=== PATIENT | female | born 1960 | race Caucasian/White ===

== ENCOUNTER → 2017-09-24 13:11 | Outpatient (CLI) | payer OTHER, SELFPAY ==
--- NOTE | 2017-09-24 13:17 | CT_ITS ---
CT bony pelvis CLINICAL INDICATION: ITS.REASON: RT HIP PAIN,SACROILIITIS,LOW BACK PAIN ORDERING PHYSICIAN: Jayson Lea PATIENT AGE: 56 years TECHNIQUE: Axial images obtained without contrast. Sagittal, coronal, and 3-D reformatted images are generated and reviewed. COMPARISON: No fracture or dislocation. No lytic or blastic change. The SI joints have an unremarkable appearance. No evidence of effusion, erosion, or significant spurring or sclerosis. There has been prior posterior laminectomy with posterior fusion at L5-S1. There are minimal osteoarthritic changes of the hips with decrease in the joint space superiorly and minimal subcortical cystic change on the right involving the lateral acetabulum and the lateral aspect of the femoral head. No lytic or blastic change. No bony destructive process evident No pelvic mass or abnormal fluid collection. There has been prior hysterectomy. IMPRESSION: 1. Prior fusion with interpedicular screws at L5-S1. 2. Unremarkable SI joints. 3. Minimal osteoarthritic change of the right hip.
[2017-09-24 13:41] LABS: Microscopic, Urine URINE MICROSCOPIC (MICROSCOPIC)
[2017-09-24 14:12] LABS: Basophils % 0.3 % (0.1-2.0); Eosinophils # 0.1 K/mm3 (0.0-0.4); Eosinophils % 1.5 % (0.1-12.0); Hematocrit 40.9 % (37.0-47.0); Hemoglobin 13.9 g/dL (12.2-16.2); Lymphocytes # 2.2 K/mm3 (0.7-4.5); Lymphocytes % 22.8 K/mm3 (10-50); Mean Corpuscular HGB Conc 34.1 g/dL (31.8-35.4); Mean Corpuscular Hemoglobin 31.6 pg (27.0-31.2); Mean Corpuscular Volume 92.9 fl (81-99); Mean Platelet Volume 7.3 fl (7.4-10.4); Monocytes # 0.4 K/mm3 (0.1-1.0); Monocytes % 3.6 % (1.7-9.3); Neutrophils # 6.9 K/mm3 (1.8-7.8); Neutrophils % 71.7 % (37.0-80.0); Platelet Count 335 K/mm3 (142-424); Red Cell Distribution Width 12.5 % (11.5-17.5); White Blood Count 9.6 K/mm3 (4.8-10.8)
[2017-09-24 14:19] LABS: Appearance,Urine CLEAR (Clear); Bilirubin,Urine Negative (Negative); Blood, Urine Negative (Negative); Color,Urine YELLOW (Yellow); Glucose,Urine (UA) Negative (Negative); Ketones,Urine Negative (Negative); Leukocyte Esterase,Urine Negative (Negative); Nitrate,Urine Negative (Negative); PH,Urine 6.5 (5.0-8.5); Protein,Urine Negative (Negative); Urobilinogen,Urine 0.2 EU/dl (0.2)
[2017-09-24 14:20] LABS: Activated Partial Thrombo Time 29.7 seconds (23.6-34.0); INR 0.99 (0.9-1.1); Prothrombin Time 10.7 seconds (9.4-11.8)
[2017-09-24 14:52] LABS: Bacteria,Urine Trace /lpf; Squamous Epithelial Cell,Urine Occasional #/hpf (0-5)
[2017-09-24 15:23] LABS: Blood Urea Nitrogen 6 mg/dL (7-18); Carbon Dioxide 25 mmol/L (21.0-32.0); Chloride 98 mmol/L (98-107); Estimated Glomerular Filt Rate 87 ml/min (>60); GFR (African American) 105 ML/MIN (>60); Glucose 117 mg/dL (74-106); Sodium 135 mmol/L (136-145)
== END ==
PROVIDERS: PCP Emergency Medicine; Visit Provider Orthopaedic Surgery
DX: Z01.818 Encounter for other preprocedural examination (principal); M25.551 Pain in right hip; M46.1 Sacroiliitis, not elsewhere classified; M54.5 Low back pain
CPT/HCPCS: 36415; 72192; 80048; 81001; 85025; 85610; 85730; 93005

== ENCOUNTER → 2017-11-07 12:04 | Outpatient (CLI) | payer OTHER, SELFPAY ==
[2017-11-07 12:42] LABS: Basophils % 0.4 % (0.1-2.0); Eosinophils # 0.1 K/mm3 (0.0-0.4); Hematocrit 43.5 % (37.0-47.0); Hemoglobin 14.3 g/dL (12.2-16.2); Lymphocytes # 2.4 K/mm3 (0.7-4.5); Lymphocytes % 21.5 K/mm3 (10-50); Mean Corpuscular Hemoglobin 31.2 pg (27.0-31.2); Mean Corpuscular Volume 94.6 fl (81-99); Mean Platelet Volume 7.7 fl (7.4-10.4); Monocytes # 0.6 K/mm3 (0.1-1.0); Monocytes % 5.3 % (1.7-9.3); Neutrophils % 71.7 % (37.0-80.0); Platelet Count 330 K/mm3 (142-424); Red Blood Count 4.59 M/mm3 (4.20-5.40); Red Cell Distribution Width 12.6 % (11.5-17.5); White Blood Count 11.2 K/mm3 (4.8-10.8)
[2017-11-07 13:21] LABS: Blood Urea Nitrogen 7 mg/dL (7-18); Carbon Dioxide 30 mmol/L (21.0-32.0); Chloride 102 mmol/L (98-107); Creatinine,Serum 0.65 mg/dL (0.55-1.02); Estimated Glomerular Filt Rate 95 ml/min (>60); GFR (African American) 115 ML/MIN (>60); Glucose 93 mg/dL (74-106); Sodium 138 mmol/L (136-145)
== END ==
PROVIDERS: Visit Provider Orthopaedic Surgery
DX: G56.01 Carpal tunnel syndrome, right upper limb (principal)
CPT/HCPCS: 36415; 80048; 85025

== ENCOUNTER → 2017-11-12 07:19 | Day surgery (SDC) | payer OTHER, SELFPAY ==
--- NOTE | 2017-11-12 07:40 | HMH.ANESCL ---
[facility] Anesthesia Checklist - Patient Identification Patient Identification: Arm Band, Verbal (Name & ) - Structural Data Admitted From: Home Planned Operative Procedure/s: R ctr Consent for Planned Operative Procedure(s) Verified: Yes Verified Documents: Surgical Consent - NPO Status Verified Time NPO: 00:00 - Chart Verification Results Verified: CBC, BMP - Additional verifications Anesthesia Reactions: No Hx Blood Transfusions: No Blood Transfusion Reaction: No - Cardiovascular Assessment Heart Sounds: S1 & S2 Pulse Strength: Baseline Pulse Rhythm: Regular Peripheral Edema: No - Airway Assessment C-Spine Mobility Assessed: Yes TMJ Mobility Assessed: Yes Dentition: Good Dentition - Neurological Assessment Level of Consciousness: Awake, Alert, Appropriate Hx Seizures: No Numbness or tingling in extremities: No - Anesthesia Plan Anesthesia Risk discussed: Yes Anesthesia Plan: Verified ASA Class: III Anesthesia Type: MAC [facility] Anesthesia HX I have reviewed the patient's past medical history: Yes Medical History: Reports:: Gastroesophageal Reflux Disease(GERD), Hyperlipidemia, Hypertension Denies:: Cancer, Diabetes Mellitus Type 1, Diabetes Mellitus Type 2, Internal Pacemaker, MRSA Other Medical History: Reports: Arthritis, Thyroid Disease Other Surgeries: Yes: , Hysterectomy-Partial, Sinus Surgery, Thyroidectomy, Tubal Ligation. No: Pacemaker Amputation: No Fractures: No *Family Hx:: Cancer, Coronary Artery Disease, Hyperlipidemia, Hypertension
[2017-11-12 07:45] VITALS: BP 98/64; PULSE 76; RESP 18; TEMP 36.7; O2SAT 97
[2017-11-12 07:59] VITALS: BMI 25.7
[2017-11-12 09:35] VITALS: BP 92/60; PULSE 69; RESP 20; TEMP 36.5; O2SAT 98
[2017-11-12 09:50] VITALS: BP 89/58; PULSE 68; RESP 20; O2SAT 94
[2017-11-12 10:05] VITALS: BP 86/55; PULSE 72; RESP 20; O2SAT 95
[2017-11-12 10:16] VITALS: BP 92/60; PULSE 70; RESP 20; O2SAT 96
--- NOTE | 2017-11-12 10:32 | HMH.OPNOTE ---
Date of procedure: 11/12/17 Pre-op Diagnosis:: Carpal syndrome, right wrist Post-op diagnosis:: same Procedure performed:: Open carpal tunnel release, right wrist Surgeon:: Og Becker MD Bread Distributor(s):: Charisse lundberg SPRAY STAINER:: Javad Randle Anesthesia: regional Estimated blood loss (mL): 2 Clinical Note:: Patient is a 56-year-old female with right carpal tunnel syndrome with long-standing symptoms. EMG/NCV results confirmed carpal tunnel syndrome on the right side. Patient failed to respond adequately to conservative management. Therefore the carpal tunnel release surgery was necessary to relieve symptoms, preserve the remaining fibers of the median nerve, improve function and decrease the pain, paresthesias and weakness and to prevent permanent nerve damage. Operative findings:: The intraoperative findings showed the median nerve to be tightly compressed and hyperemic. The flexor retinaculum was noted to be thick and tight. There was mild synovitis in the carpal tunnel. There was no evidence of any space-occupying lesions within the carpal tunnel. Operative note:: On the day of the surgery the patient was met in the preoperative area. Patient was positively identified and the operative site was marked and initialed by me. A physical examination was performed and the chart was updated. I again discussed the procedure, risks and benefits and alternatives with the patient. The complications discussed include but are not limited to- bleeding, injury to nerves, blood vessels and tendons, infection, wound dehiscence wound coming apart, incomplete relief/continued pain, persistent numbness, palmar hypersensitivity, pillar pain, DVT/PE, complex regional pain syndrome(CRPS), worsening of nerve damage, failure of the condition to improve, incomplete return of function, bowstringing of tendons, weakness of deburr technician strength, recurrence, failure of the surgery to accomplish the desired goals, decreased use of the hand, loss of use of the arm, loss of the hand or arm, loss of life. Likely need for further surgery in the future has been discussed. I've indicated to the patient where the proposed incision would be made and also discussed the possibility of extending the incision if needed to accomplish an effective release. We have discussed how the goal of surgery is to protect the fibers which have remained healthy and hopefully reverse the symptoms of the fibers which are compromised but still recoverable. We have explained that, fibers that are permanently damaged will not recover. We have also discussed the anesthetic options which include local, regional and general. Patient expressed a preference for a regional [place]'s block. Patient asked appropriate questions and all have been answered by me. Patient wished to proceed with the surgery. Consent form was reviewed and signed. The patient was brought to the operating room and placed supine on the operating table. The right upper extremity was placed over a side table. All the bony prominences were well-padded. The patient had a Monowi's block anesthesia and IV sedation administered by the property claim rep. Please see nursing records for the total tourniquet time. The right upper extremity was prepped and draped in the usual sterile fashion. A preprocedure timeout was performed as per hospital policy. The skin incision was marked using the Jo's landmarks, just ulnar to the thenar crease. Jo's landmarks were utilized and a skin incision was made parallel and just ulnar to the thenar crease with a 15 blade. Blunt tissue dissection was carried through the subcutaneous tissue down to the palmar fascia. The palmar fascia was incised with the knife to reveal the transverse carpal ligament. The transverse carpal ligament was adequately exposed and then incised with the knife just enough to expose the median nerve. We then protected the median nerve with a freer elevator and extended the incision on the ulnar aspect of the nerve usi
--- NOTE | 2017-11-12 10:37 | P.OP_ITS ---
Date of procedure: 11/12/17 Pre-op Diagnosis:: Carpal syndrome, right wrist Post-op diagnosis:: same Procedure performed:: Open carpal tunnel release, right wrist Surgeon:: Og Becker MD Shock Absorber Installer(s):: Charisse lundberg STEAK TENDERIZER MACHINE:: Javad Randle Anesthesia: regional Estimated blood loss (mL): 2 Clinical Note:: Patient is a 56-year-old female with right carpal tunnel syndrome with long- standing symptoms. EMG/NCV results confirmed carpal tunnel syndrome on the right side. Patient failed to respond adequately to conservative management. Therefore the carpal tunnel release surgery was necessary to relieve symptoms, preserve the remaining fibers of the median nerve, improve function and decrease the pain, paresthesias and weakness and to prevent permanent nerve damage. Operative findings:: The intraoperative findings showed the median nerve to be tightly compressed and hyperemic. The flexor retinaculum was noted to be thick and tight. There was mild synovitis in the carpal tunnel. There was no evidence of any space- occupying lesions within the carpal tunnel. Operative note:: On the day of the surgery the patient was met in the preoperative area. Patient was positively identified and the operative site was marked and initialed by me. A physical examination was performed and the chart was updated. I again discussed the procedure, risks and benefits and alternatives with the patient. The complications discussed include but are not limited to- bleeding, injury to nerves, blood vessels and tendons, infection, wound dehiscence wound coming apart, incomplete relief/continued pain, persistent numbness, palmar hypersensitivity, pillar pain, DVT/PE, complex regional pain syndrome(CRPS), worsening of nerve damage, failure of the condition to improve, incomplete return of function, bowstringing of tendons, weakness of veterinary assistant strength, recurrence, failure of the surgery to accomplish the desired goals, decreased use of the hand, loss of use of the arm, loss of the hand or arm, loss of life. Likely need for further surgery in the future has been discussed. I've indicated to the patient where the proposed incision would be made and also discussed the possibility of extending the incision if needed to accomplish an effective release. We have discussed how the goal of surgery is to protect the fibers which have remained healthy and hopefully reverse the symptoms of the fibers which are compromised but still recoverable. We have explained that, fibers that are permanently damaged will not recover. We have also discussed the anesthetic options which include local, regional and general. Patient expressed a preference for a regional Natural Steps's block. Patient asked appropriate questions and all have been answered by me. Patient wished to proceed with the surgery. Consent form was reviewed and signed. The patient was brought to the operating room and placed supine on the operating table. The right upper extremity was placed over a side table. All the bony prominences were well-padded. The patient had a Natural Steps's block anesthesia and IV sedation administered by the marketing specialist. Please see nursing records for the total tourniquet time. The right upper extremity was prepped and draped in the usual sterile fashion. A preprocedure timeout was performed as per hospital policy. The skin incision was marked using the Jo's landmarks, just ulnar to the thenar crease. Jo's landmarks were utilized and a skin incision was made parallel and just ulnar to the thenar crease with a 15 blade. Blunt tissue dissection was carried through the subcutaneous tissue down to the palmar fascia. The palmar fascia was incised with the knife to reveal the transverse carpal ligament. The transverse
== END ==
PROVIDERS: PCP Emergency Medicine; Visit Provider Orthopaedic Surgery
PROC: (CPT 64721; principal; 2017-11-12 09:00)
DX: G56.01 Carpal tunnel syndrome, right upper limb (principal)
CPT/HCPCS: 64721; 96374

== ENCOUNTER → 2018-01-22 13:44 | Outpatient (CLI) | payer OTHER, SELFPAY ==
--- NOTE | 2018-01-22 13:45 | CI_ITS ---
Cerebrovascular Exam Indications: Follow-up carotid 433.10. IMPRESSIONS Study suggests 50-69% stenosis involving the right internal carotid artery and the left internal carotid artery. No change from the study of 22-May-2017. History: A bruit of the left carotid artery. A bruit of the right carotid artery. Carotid duplex study. Complete study and Doppler flow study including spectral analysis, color and gonzalez scale imaging. Location: Vascular laboratory. Patient status: Outpatient. Tables: Arterial flow: + +---------+--------+ Location V sys V ed + +---------+--------+ Right CCA - proximal 137.8cm/s 42.9cm/s + +---------+--------+ Right CCA - distal 83.1cm/s 35.6cm/s + +---------+--------+ Right ECA 123.2cm/s -------- + +---------+--------+ Right ICA - proximal 86.7cm/s 41.1cm/s + +---------+--------+ Right ICA - mid 115.9cm/s 57.5cm/s + +---------+--------+ Right ICA - distal 134cm/s 55.7cm/s + +---------+--------+ Right vertebral 41.1cm/s -------- + +---------+--------+ Left CCA - proximal 148.8cm/s 52cm/s + +---------+--------+ Left CCA - distal 146.9cm/s 55.7cm/s + +---------+--------+ Left ECA 110.7cm/s -------- + +---------+--------+ Left ICA - proximal 172.5cm/s 55.7cm/s + +---------+--------+ Left ICA - mid 186.2cm/s 66.9cm/s + +---------+--------+ Left ICA - distal 139.9cm/s 45cm/s + +---------+--------+ Left vertebral 66.9cm/s -------- + +---------+--------+ Velocity ratios: + + + + + + Right, V sys Right, V ed Left, V sys Left, V ed + + + + + + Max ICA/dist CCA 1.61 1.62 1.27 1.2 + + + + + + (Report amended ) Electronically signed by: Khadar Mcnamara [id number]
== END ==
PROVIDERS: PCP Emergency Medicine; Visit Provider Internal Medicine
DX: R42 Dizziness and giddiness (principal)
CPT/HCPCS: 93880

== ENCOUNTER → 2018-07-18 12:51 | Outpatient (CLI) | payer OTHER, SELFPAY ==
--- NOTE | 2018-07-18 12:54 | MR_ITS ---
MR pelvis wo con HISTORY: Intermittent buttock and right leg pain with numbness and tingling. Painful to walk ITS.REASON: POST SI FUSION ORDERING PHYSICIAN: Jayson Lea PATIENT AGE: 57 years Comparison: 10/04/2017 TECHNIQUE: Standard multiplanar multiecho sequences are performed without contrast. FINDINGS: Patient has had prior posterior fusion in the lumbosacral spine and also has had prior fusion of the right SI joint. There is extensive artifact from the metallic hardware that has been inserted. This obscures fine detail of the right sacroiliac region and the lumbosacral junction. No abnormal fluid collections are evident. No bony destructive process.. No pelvic mass or abscess. Sacral region has an unremarkable appearance. The hips are unremarkable. There has been prior hysterectomy IMPRESSION: 1. Artifact from lumbosacral fusion and right sacroiliac fusion. 2. Otherwise negative, no acute finding
== END ==
PROVIDERS: PCP Emergency Medicine; Visit Provider Orthopaedic Surgery
DX: M46.1 Sacroiliitis, not elsewhere classified (principal)
CPT/HCPCS: 72195

== ENCOUNTER → 2018-09-26 13:18 | Outpatient (CLI) | payer OTHER, SELFPAY | PROVIDERS: PCP Emergency Medicine; Visit Provider Internal Medicine Cardiovascular Disease | DX: I25.10 Atherosclerotic heart disease of native coronary artery without angina pectoris (principal); R00.0 Tachycardia, unspecified; I65.23 Occlusion and stenosis of bilateral carotid arteries; E78.49 Other hyperlipidemia; I51.9 Heart disease, unspecified; F17.200 Nicotine dependence, unspecified, uncomplicated; Z82.49 Family history of ischemic heart disease and other diseases of the circulatory system | CPT/HCPCS: 93270 ==

== ENCOUNTER → 2018-10-03 09:47 | Outpatient (CLI) | payer OTHER, SELFPAY ==
--- NOTE | 2018-10-03 09:48 | MM_ITS ---
MM Dig screening mamm BI w/CAD CAD Screening COMPARISON: Digital mammograms with CAD 07/19/2016 and 07/23/2014 INDICATION: There is no personal or family history of breast cancer, there has been a previous biopsy left breast for benign disease. TECHNIQUE: Standard CC and MLO images were obtained. R2 CAD reviewed. FINDINGS: Moderate diffuse fibroglandular densities are seen throughout both breasts. There is no suspicious lesion in either breast and no suspicious microcalcifications. IMPRESSION: Stable exam with fibrofatty parenchyma BI-RADS Category: 1 Negative RECOMMENDED FOLLOW-UP: 1YR - 1 YEAR FOLLOW-UP (A letter has been sent to the patient regarding results of the study.)
--- NOTE | 2018-10-03 09:48 | XR_ITS ---
DEXA SCAN.-BONE DENSITY STUDY HIPS AND LUMBAR SPINE HISTORY: Postmenopausal female smoker. Low calcium intake. TECHNIQUE: DEXA scan hip and lumbar spine The most complete data summary and color graphic presentation of the today's ( and any prior ) DEXA findings are available in PACS. Definition and treatment guidelines included. COMPARISON: None listed LUMBAR SPINE: L2 vertebral body demonstrates the lowest T score -2.5 with BMD0.904 g/cm sq Thus reflects borderline osteoporosis at L2 level Overall mean lumbar L1-L4 T score -1.8 with BMD0.96 g/cm sq ... Reflects Osteopenia overall at lumbar spine . HIPS: Femoral neck density is best predictor of hip fracture risk . Left femoral neck demonstrates the lowest T score -0.8 with BMD0.929 g/cm sq . Right femoral neck T score -0.8 with BMD 0.948 These are low normal densities at the hips Averaging all region both hips yields today's overall Hip Mean T score -0.4 with BMD0.953 g/cm sq- this value reflects overall normal bone density at hips.. T score -0.8 with mean BMD0.933 g/cm sq Thus this reflects a 6% decrease in overall mean bone density at the hips in the interval. ------IMPRESSION 1. LUMBAR SPINE: . Overall density lumbar spine reflects osteopenia with overall T score = -1.4 I would note borderline osteopenia at L2 with the bone density T score = -2.5 2. HIPS: Overall normal bone density at hips. Overall T score = -0.4 WHO criteria for post-menopausal, Women: Normal: T-score at or above -1 SD Osteopenia: T-score between -1 and -2.5 SD Osteoporosis: T-score at or below -2.5 SD
== END ==
PROVIDERS: PCP Emergency Medicine; Visit Provider Obstetrics & Gynecology
DX: Z12.31 Encounter for screening mammogram for malignant neoplasm of breast (principal); Z13.820 Encounter for screening for osteoporosis; Z78.0 Asymptomatic menopausal state
CPT/HCPCS: 77067; 77080

== ENCOUNTER → 2018-10-18 10:06 | Outpatient (CLI) | payer OTHER, SELFPAY ==
[2018-10-18 11:49] LABS: Alanine Aminotransferase 18 U/L (12-78); Albumin Level 3.6 gm/dL (3.4-5.0); Alkaline Phosphatase 138 U/L (46-116); Aspartate Amino Transferase 16 U/L (15-37); Bilirubin,Direct 0.2 mg/dL (0.0-0.2); Bilirubin,Indirect 0.4 mg/dL (0.0-0.9); Bilirubin,Total 0.6 mg/dL (0.2-1.0); Chol/HDL Ratio 4.3 (1-3.5); Cholesterol 196 mg/dL (140-200); Free T4 (Free Thyroxine) 1.03 ng/dl (0.76-1.46); HDL Cholesterol 46 mg/dL (29-89); LDL Cholesterol 127 mg/dL (0-130); Thyroid Stimulating Hormone 2.91 uIU/ml (0.358-3.740); Total Protein,Serum 6.9 gm/dL (6.4-8.2); Triglycerides 115 mg/dL (30-200); VLDL Cholesterol 23 mg/dL (0-40)
== END ==
PROVIDERS: Visit Provider Internal Medicine Cardiovascular Disease
DX: I25.10 Atherosclerotic heart disease of native coronary artery without angina pectoris (principal); E78.49 Other hyperlipidemia; I51.9 Heart disease, unspecified; I65.23 Occlusion and stenosis of bilateral carotid arteries; R00.0 Tachycardia, unspecified; F17.200 Nicotine dependence, unspecified, uncomplicated; Z82.49 Family history of ischemic heart disease and other diseases of the circulatory system
CPT/HCPCS: 36415; 80061; 80076; 84439; 84443

== ENCOUNTER → 2019-04-09 14:41 | Outpatient (CLI) | payer OTHER, SELFPAY ==
--- NOTE | 2019-04-09 14:44 | XR_ITS ---
XR DEXA axial skeleton HISTORY: ITS.REASON: SCREENING ORDERING PHYSICIAN: Talat Miller MD PATIENT AGE: 58 years COMPARISON: None FINDINGS: There are some areas of false elevation of the bone density measurement which could be from degenerative changes however there is a area of increased density which could be some sclerosis involving the spinous process at the L3 level. In the lumbar area, L1-L4, BMD is 1.024 and T score is -1.3. The BMD measured at the left femoral neck is 0.909 g/cm squared with a T score of -0.9. This is considered Osteopenic according to the World Health Organization criteria. Fracture risk is mild. Treatment is advised. IMPRESSION: Mild osteopenia. Possible area of sclerosis involving the L3 spinous process. To exclude osteoblastic lesion I would suggest correlating clinical with history and if necessary plain film exam of the lumbar spine.
== END ==
PROVIDERS: PCP Emergency Medicine; Visit Provider Obstetrics & Gynecology
DX: Z78.0 Asymptomatic menopausal state (principal)
CPT/HCPCS: 77080

== ENCOUNTER → 2019-04-21 08:22 | Outpatient (CLI) | payer OTHER, SELFPAY ==
--- NOTE | 2019-04-21 08:27 | XR_ITS ---
XR wrist LT min 3V HISTORY pain ITS.REASON: wrist pain/ cts ORDERING PHYSICIAN: Og Becker MD PATIENT AGE: 58 years Comparison: 01/06/2016 FINDINGS: There are severe osteoarthritic changes of the radiocarpal joint at the navicular and lunate area. Severe osteoarthritic changes are present at the first metacarpal carpal joint. There is mild widening of the scapholunate space not as prominent as on the previous exam. Previously noted impaction of the capitate between the scaphoid and lunate is less apparent on today's study. There is once again noted deformity of the scaphoid and also some flattening of the lunate. There is calcification dorsal to the proximal aspect of the wrist. Mild chondrocalcinosis is present at the triquetral lunate area. IMPRESSION: Severe osteoarthritic changes of the wrist as described above.
== END ==
PROVIDERS: PCP Emergency Medicine; Visit Provider Orthopaedic Surgery
DX: G56.02 Carpal tunnel syndrome, left upper limb (principal)
CPT/HCPCS: 73110

== ENCOUNTER → 2019-04-27 08:34 | Outpatient (CLI) | payer OTHER, SELFPAY ==
[2019-04-27 10:05] LABS: Basophils # 0.1 K/mm3 (0-0.2); Basophils % 0.4 % (0.1-2.0); Eosinophils # 0.2 K/mm3 (0.0-0.4); Eosinophils % 2.1 % (0.1-12.0); Hematocrit 43.6 % (37.0-47.0); Hemoglobin 14.2 g/dL (12.2-16.2); Lymphocytes # 2.6 K/mm3 (0.7-4.5); Mean Corpuscular HGB Conc 32.5 g/dL (31.8-35.4); Mean Corpuscular Volume 95.2 fl (81-99); Mean Platelet Volume 7.1 fl (7.4-10.4); Monocytes # 0.5 K/mm3 (0.1-1.0); Monocytes % 4.8 % (1.7-9.3); Neutrophils # 7.4 K/mm3 (1.8-7.8); Neutrophils % 68.6 % (37.0-80.0); Platelet Count 375 K/mm3 (142-424); Red Blood Count 4.58 M/mm3 (4.20-5.40); White Blood Count 10.8 K/mm3 (4.8-10.8)
[2019-04-27 10:55] LABS: Anion Gap 11.2 mEq/L (5-15); Blood Urea Nitrogen 7 mg/dL (7-18); Calcium 8.9 mg/dL (8.5-10.1); Carbon Dioxide 28 mmol/L (21.0-32.0); Chloride 102 mmol/L (98-107); Creatinine,Serum 0.59 mg/dL (0.55-1.02); Estimated Glomerular Filt Rate 105 ml/min (>60); GFR (African American) 127 ML/MIN (>60); Glucose 91 mg/dL (74-106); Potassium 5.2 mmoL/L (3.5-5.1); Sodium 136 mmol/L (136-145)
[2019-04-27 11:03] LABS: Alanine Aminotransferase 17 U/L (12-78); Albumin Level 3.6 gm/dL (3.4-5.0); Alkaline Phosphatase 127 U/L (46-116); Aspartate Amino Transferase 14 U/L (15-37); Bilirubin,Direct 0.1 mg/dL (0.0-0.2); Bilirubin,Indirect 0.2 mg/dL (0.0-0.9); Bilirubin,Total 0.3 mg/dL (0.2-1.0); Chol/HDL Ratio 4.1 (1-3.5); Cholesterol 186 mg/dL (140-200); HDL Cholesterol 45 mg/dL (29-89); LDL Cholesterol 111 mg/dL (0-130); Total Protein,Serum 6.9 gm/dL (6.4-8.2); Triglycerides 151 mg/dL (30-200); VLDL Cholesterol 30 mg/dL (0-40)
== END ==
PROVIDERS: Orthopaedic Surgery; Visit Provider Internal Medicine Cardiovascular Disease
DX: E78.49 Other hyperlipidemia (principal); I25.10 Atherosclerotic heart disease of native coronary artery without angina pectoris; I51.89 Other ill-defined heart diseases; I10 Essential (primary) hypertension; Z01.818 Encounter for other preprocedural examination
CPT/HCPCS: 36415; 80048; 80061; 80076; 85025; 93005

== ENCOUNTER → 2019-06-09 13:59 | Outpatient (CLI) | payer OTHER, SELFPAY ==
[2019-06-09 15:06] LABS: Alanine Aminotransferase 16 U/L (12-78); Albumin Level 3.6 gm/dL (3.4-5.0); Alkaline Phosphatase 120 U/L (46-116); Aspartate Amino Transferase 17 U/L (15-37); Bilirubin,Direct 0.1 mg/dL (0.0-0.2); Bilirubin,Indirect 0.3 mg/dL (0.0-0.9); Bilirubin,Total 0.4 mg/dL (0.2-1.0); Chol/HDL Ratio 3.2 (1-3.5); Cholesterol 159 mg/dL (140-200); HDL Cholesterol 49 mg/dL (29-89); LDL Cholesterol 79 mg/dL (0-130); Total Protein,Serum 6.6 gm/dL (6.4-8.2); Triglycerides 155 mg/dL (30-200); VLDL Cholesterol 31 mg/dL (0-40)
== END ==
PROVIDERS: Visit Provider Urology
DX: E78.5 Hyperlipidemia, unspecified (principal); I25.10 Atherosclerotic heart disease of native coronary artery without angina pectoris
CPT/HCPCS: 36415; 80061; 80076

== ENCOUNTER → 2019-06-11 08:52 | Outpatient (CLI) | payer MEDICARE, OTHER, SELFPAY ==
--- NOTE | 2019-06-11 09:17 | CA_ITS ---
APPROVED REPORT Neurodiagnostic Tech: ELVER Laterality: Bilateral Study Quality: Good Indications: RADHAMES Risk Factors Hypertension: Smoking Doppler Spectral Velocity Analysis ECA (R) 109.00/ cm/s ECA (L) 197.00/ cm/s dICA (R) 144.00/66.80 cm/s dICA (L) 141.00/55.30 cm/s Mario (R) 147.00/60.90 cm/s Mario (L) 172.00/55.30 cm/s pICA (R) 142.00/61.90 cm/s pICA (L) 180.00/61.70 cm/s dCCA (R) 105.00/38.40 cm/s dCCA (L) 179.00/79.20 cm/s pCCA (R) 138.00/41.00 cm/s pCCA (L) 156.00/51.50 cm/s Vert (R) 36.40/ cm/s Vert (L) 84.20/ cm/s ICA/CCA 1.40 ICA/CCA 1.00 Findings Duplex evaluation demonstrates stenosis of the right proximal internal carotid artery in the range of 50-69% with PSV =140 cm/sec, EDV <100 cm/sec, and IC/CC Ratio <4.0.Duplex evaluation demonstrates stenosis of the left proximal internal carotid artery in the range of 50-69% with PSV =140 cm/sec, EDV <100 cm/sec, and IC/CC Ratio <4.0. Conclusion Duplex evaluation demonstrates stenosis of the right proximal internal carotid artery in the range of 50-69% with PSV =140 cm/sec, EDV <100 cm/sec, and IC/CC Ratio <4.0.Duplex evaluation demonstrates stenosis of the left proximal internal carotid artery in the range of 50-69% with PSV =140 cm/sec, EDV <100 cm/sec, and IC/CC Ratio <4.0. Electronically signed by : Khadar Mcnamara MD 06/12/2019 14:27:07
--- NOTE | 2019-06-11 11:05 | US_ITS ---
PROCEDURE: US GALLBLADDER CLINICAL INDICATION: RUQ pain COMPARISON: No exams were available for comparison FINDINGS: Pancreas: Unremarkable/Not well seen Liver: Unremarkable. There is appropriate direction of blood flow within a non dilated portal vein. Right kidney: Unremarkable appearing. No hydronephrosis. Gallbladder: No stones are evident. There is no gallbladder wall thickening. Common duct is normal in diameter. IMPRESSION: Negative gallbladder ultrasound. No stones evident. Dictated by: Khadar Mcnamara MD 06/11/2019 18:29 Electronically signed by Khadar Mcnamara MD in [place] 06/11/2019 18:29
--- NOTE | 2019-06-11 11:05 | CT_ITS ---
Procedure: CT ANGIO ABDOMEN PELVIS CLINICAL HISTORY: aorta and mesenteric stenosis COMPARISON: No exams were available for comparison TECHNIQUE: IV Contrast: 100ml Optiray 350 Axial images obtained with sagittal and coronal reformats. All CT scans at the facility use one or more dose reduction, viz: automated exposure control, ma/kV adjustment per patient size (including targeted exams where dose is matched to indication, i.e. head), or iterative reconstruction technique. FINDINGS: There are atheromatous changes of the abdominal aorta below the level of the renal arteries. No significant stenosis is evident. There is mild amount of calcific plaque at the ostium of the celiac artery but no significant stenosis. The SMA has an unremarkable appearance. No evidence of aortic aneurysm. Mild atheromatous changes ends are present at the renal arteries on both sides but no significant stenosis. There is approximately 30 percent stenosis of the proximal aspect of the left renal artery. There is a small accessory right renal artery. This is superior to the main renal artery. Inferior mesenteric artery is patent. Atherosclerotic changes involve the iliac vessels. Common iliac show atheromatous changes but no significant stenosis. The external iliac on the right is small in caliber with 60 long segment stenosis distal to the bifurcation. Approximately 30-40 percent stenosis involves the mid aspect of the left external iliac artery There are postsurgical changes of the lumbar spine from prior fusion at the L5-S1 level. Postsurgical changes are present in the right hemipelvis with significant artifact from fixator screws between the ileum and the sacrum. IMPRESSION: The 1. No evidence of SMA or celiac significant stenosis. 2. Atheromatous changes of the aortoiliac vessels with 60 percent long segment stenosis of the right external iliac and 30-40 percent stenosis of the left external iliac artery. 3. No evidence of aortic aneurysm or dissection Dictated by: Khadar Mcnamara MD 06/12/2019 07:05 Electronically signed by Khadar Mcnamara MD in [facility] 06/12/2019 13:43
--- NOTE | 2019-06-11 11:05 | CT_ITS ---
PROCEDURE: CT CHEST WO CON CLINICAL INDICATION: PE Right-sided chest pain, lower rib pain anteriorly COMPARISON: CT ANGIO ABDOMEN PELVIS from 06/11/2019 TECHNIQUE: Axial images obtained with sagittal and coronal reformats. All CT scans at the facility use one or more dose reduction, viz: automated exposure control, ma/kV adjustment per patient size (including targeted exams where dose is matched to indication, i.e. head), or iterative reconstruction technique. FINDINGS: Normal heart size. There are scattered mildly prominent mediastinal lymph nodes. In the precarinal area there is a cluster of nodes which together measures 2.9 x 1.2 cm. There is a node in the AP window which measures 1.8 x 1.4 cm. There are mildly prominent nodes in the epigastric area at 1.8 x 1 cm with other smaller nodes present. There is a subpleural nodular opacity in the left upper lobe posteriorly which measures 9.5 by 5 mm. In the lung bases there is interstitial lung disease with interlobular septal thickening peripherally with some patchy ground-glass density. There is calcified granuloma in the left lower lobe. There are multiple old right-sided rib fractures. There is severe wedge compression changes involving the T5 vertebral body which appears old. Kyphosis is present at this level. IMPRESSION: 1. Interstitial lung disease more prominent in the lung bases with interlobular septal thickening and mild ground-glass density. Etiology is indeterminate. 2. Mild mediastinal adenopathy Dictated by: Khadar Mcnamara MD 06/12/2019 07:04 Electronically signed by Khadar Mcnamara MD in [facility] 06/12/2019 13:26
== END ==
PROVIDERS: PCP Emergency Medicine; Visit Provider Emergency Medicine
DX: I25.10 Atherosclerotic heart disease of native coronary artery without angina pectoris (principal); I65.23 Occlusion and stenosis of bilateral carotid arteries; R10.11 Right upper quadrant pain; I26.99 Other pulmonary embolism without acute cor pulmonale; K55.1 Chronic vascular disorders of intestine
CPT/HCPCS: 71250; 74174; 76705; 93880; 94060; 94618; 94726; 94729; Q9967

== ENCOUNTER 2020-06-12 10:15 | Emergency (ER) | payer MEDICARE, SELFPAY ==
[2020-06-12 10:22] VITALS: BP 149/80; PULSE 79; RESP 20; TEMP 36.9; O2SAT 99; BMI 27.4
--- NOTE | 2020-06-12 10:26 | HMH.EDUTC ---
[facility] [place] Disposition Clinical Impression: Perioral dermatitis Disposition: Home, Self-Care Condition on Discharge: Good Prescriptions: Doxycycline Hyclate [Doxycycline 100mg Capsule] 100 mg PO Q12 10 Days #20 cap Transmission Status: Pending to [facility] metroNIDAZOLE [Metronidazole] 1 applic TP TID 10 Days #45 cream..g. Transmission Status: Pending to [facility] Referrals: Arianna Wills APRN [Primary Care Provider] - Time of Disposition: 10:35 Medical Decision Making - Ba Inquiry Pt receiving controlled substance: No Vital Signs: 06/12/20 10:22 Temperature 98.5 F Temperature Source Oral Pulse Rate [Left Brachial] 79 Respiratory Rate 20 Blood Pressure [Left Arm] 149/80 H Blood Pressure Mean [Left Arm] 103 Blood Pressure Source [Left Arm] Automatic Cuff Blood Pressure Position [Left Arm] Sitting 02 Sat by Pulse Oximetry 99 Oxygen Delivery Method Room Air [facility] [place] HPI - General Stated complaint: rash around mouth Time Seen by Provider: 06/12/20 10:26 Mode of Arrival: Ambulatory Source of Information: Patient Limitations: No Limitations Description of Symptoms (Recalled from Triage Doc. by RN): PATIENT C/O PAINFUL RASH AROUND MOUTH X APPROX 3 WEEKS HEENT Symptoms (Recalled from RN notes): Yes Resp Symptoms (Recalled from RN notes): No Skin Symptoms (Recalled from RN notes): No MS Symptoms (Recalled from RN notes): No Functional Status (Recalled from RN notes): WNL - History of Present Illness Provider Complaint: Rash around mouth X 3 weeks. Around upper and lower lip. No lesions on tongue or inside mouth. Rash is painful. Started after putting father in residential. Various OTC treatments haven't helped. Onset (ago): week(s) (3) Location: mouth Relieving factors: none Exacerbating factors: none Treatments prior to arrival: none - Related Data Home Medications Medication Instructions Recorded Confirmed aspirin 81 mg tablet,delayed 81 mg PO DAILY 09/25/18 05/12/20 release ranitidine HCl 300 mg tablet 300 mg PO BID PRN tab 04/23/19 05/12/20 Previous Rx's Medication Instructions Recorded Albuterol Sulfate [Albuterol HFA 2 puffs IH Q6HP PRN #1 inh 05/10/19 Inhaler] fluticasone furoate 100 1 inh INHALATION DAILY #60 each 05/25/19 mcg-vilanterol 25 mcg/dose inhalation powder losartan 50 mg tablet 50 mg PO DAILY #30 tab 09/07/19 atorvastatin 80 mg tablet 80 mg PO DAILY #90 tab 01/06/20 sertraline 50 mg tablet 50 mg PO DAILY #90 tab 02/05/20 levothyroxine 75 mcg capsule 188 mcg PO DAILY 90 Days #226 cap 03/17/20 omeprazole 40 mg capsule,delayed 40 mg PO DAILY PRN #90 cap 03/17/20 release alprazolam 0.25 mg tablet 0.25 mg PO QHS PRN 7 Days #7 tab 05/12/20 metoprolol succinate 50 mg 50 mg PO DAILY #30 tab 06/01/20 tablet,extended release 24 hr clonazepam 0.5 mg tablet 0.5 mg PO TID #30 tab 06/08/20 Doxycycline Hyclate [Doxycycline 100 mg PO Q12 10 Days #20 cap 06/12/20 100mg Capsule] metroNIDAZOLE [Metronidazole] 1 applic TP TID 10 Days #45 06/12/20 cream..g. Allergies Allergy/AdvReac Type Severity Reaction Status Date / Time No Known Allergies Allergy Verified 05/12/20 11:05 - Worker's Comp Is this a Worker's Comp case?: No [facility] History - Hepatitis A Screen Drug use history?: No High risk sexual behaviors?: No History of sexually transmitted infection?: No Currently employed?: No Childcare worker?: No Do you have indoor plumbing?: Yes Do you have electricity?: Yes Attestation statement:: This patient has been screened for Hepatitis A risk factors. I have reviewed the patient's past medical history: Yes Medical History: Reports:: Gastroesophageal Reflux Disease(GERD), Hyperlipidemia, Hypertension, Palpitations Denies:: Cancer, Diabetes Mellitus Type 1, Diabetes Mellitus Type 2, Internal Pacemaker, MRSA, Seizures Other Medical History: Reports: Arthritis, Blood Transfusion Reaction, Hypothyroidism, Thy
[2020-06-12 10:38] VITALS: BP 149/80; PULSE 79; RESP 20; TEMP 36.9; O2SAT 99
== END 2020-06-12 10:40 | disposition home or self-care (01) ==
PROVIDERS: Emergency Provider Emergency Medicine; PCP Nurse Practitioner Family
DX: L71.0 Perioral dermatitis (principal); I10 Essential (primary) hypertension; K21.9 Gastro-esophageal reflux disease without esophagitis; E03.9 Hypothyroidism, unspecified; E78.5 Hyperlipidemia, unspecified; F17.210 Nicotine dependence, cigarettes, uncomplicated; Z90.710 Acquired absence of both cervix and uterus; Z79.899 Other long term (current) drug therapy
CPT/HCPCS: 99201

== ENCOUNTER → 2020-06-30 10:56 | Outpatient (CLI) | payer MEDICARE, SELFPAY ==
[2020-06-30 13:14] LABS: Bilirubin,Unconjugated 0.4 mg/dL (0.0-1.1)
[2020-06-30 13:15] LABS: Alanine Aminotransferase 12 U/L (12-78); Albumin Level 3.9 g/dl (3.5-5.0); Alkaline Phosphatase 136 U/L (38-126); Aspartate Amino Transferase 26 U/L (14-36); Bilirubin,Direct 0.1 mg/dl (0.0-0.4); Bilirubin,Indirect 0.3 mg/dL (0.0-0.9); Bilirubin,Total 0.4 mg/dl (0.2-1.3); Chol/HDL Ratio 2.9 (1-3.5); Cholesterol 171 mg/dl (140-200); HDL Cholesterol 58 mg/dl (40-60); Total Protein,Serum 6.5 g/dl (6.3-8.2); Triglycerides 143 mg/dl (30-150); VLDL Cholesterol 29 mg/dL (0-40)
[2020-06-30 13:26] LABS: Direct LDL Cholesterol 109.38 mg/dL (100-129)
== END ==
PROVIDERS: Visit Provider Internal Medicine Cardiovascular Disease
DX: F17.200 Nicotine dependence, unspecified, uncomplicated; I10 Essential (primary) hypertension; I25.10 Atherosclerotic heart disease of native coronary artery without angina pectoris; I65.23 Occlusion and stenosis of bilateral carotid arteries; R09.89 Other specified symptoms and signs involving the circulatory and respiratory systems; Z82.49 Family history of ischemic heart disease and other diseases of the circulatory system; E78.49 Other hyperlipidemia
CPT/HCPCS: 36415; 80061; 80076

== ENCOUNTER → 2020-07-04 10:04 | Outpatient (CLI) | payer MEDICARE, SELFPAY ==
--- NOTE | 2020-07-04 10:05 | CA_ITS ---
APPROVED REPORT Chop Saw Operator: LUIS Laterality: Bilateral Study Quality: Good Indications: mariaa Doppler Spectral Velocity Analysis ECA (R) 131.90/16.40 cm/s ECA (L) 110.00/15.30 cm/s dICA (R) 114.60/41.40 cm/s dICA (L) 92.20/34.60 cm/s Mario (R) 131.90/38.50 cm/s Mario (L) 143.50/39.30 cm/s pICA (R) 111.70/39.50 cm/s pICA (L) 227.20/47.80 cm/s dCCA (R) 94.40/30.80 cm/s dCCA (L) 228.10/72.00 cm/s pCCA (L) 115.70/31.70 cm/s Vert (R) 44.90/12.70 cm/s ICA/CCA 1.40 Vert (L) 60.00/22.30 cm/s ICA/CCA 1.00 Findings Duplex evaluation demonstrates stenosis of the right proximal internal carotid artery in the range of 20-49% with PSV<140 cm/sec, EDV <100 cm/sec, and IC/CC Ratio <4.0.Duplex evaluation demonstrates stenosis of the left proximal internal carotid artery in the range of 50-69% with PSV =140 cm/sec, EDV <100 cm/sec, and IC/CC Ratio <4.0.Antegrade flow seen bilateral vertebral arteries. Conclusion Duplex evaluation demonstrates stenosis of the right proximal internal carotid artery in the range of 20-49% with PSV <140 cm/sec, EDV <100 cm/sec, and IC/CC Ratio <4.0.Duplex evaluation demonstrates stenosis of the left proximal internal carotid artery in the range of 50-69% with PSV =140 cm/sec, EDV <100 cm/sec, and IC/CC Ratio <4.0.Antegrade flow seen bilateral vertebral arteries. No significant change from exam of 06/11/19 Electronically signed by : Khadar Mcnamara MD 07/05/2020 09:09:14
== END ==
PROVIDERS: PCP Nurse Practitioner Family; Visit Provider Internal Medicine Cardiovascular Disease
DX: F17.200 Nicotine dependence, unspecified, uncomplicated; I10 Essential (primary) hypertension; I25.10 Atherosclerotic heart disease of native coronary artery without angina pectoris; I65.23 Occlusion and stenosis of bilateral carotid arteries; R09.89 Other specified symptoms and signs involving the circulatory and respiratory systems; Z82.49 Family history of ischemic heart disease and other diseases of the circulatory system; E78.49 Other hyperlipidemia
CPT/HCPCS: 93880

== ENCOUNTER 2020-11-02 08:59 | Emergency (ER) | payer MEDICARE, SELFPAY ==
[2020-11-02 09:05] VITALS: BP 132/91; PULSE 87; RESP 19; TEMP 36.9; O2SAT 98; BMI 26.2
--- NOTE | 2020-11-02 09:14 | XR_ITS ---
PROCEDURE: XR ACUTE ABDOMEN SERIES CLINICAL INDICATION: pain Stomach pain since Saturday. Mid epigastric pain COMPARISON: CR XR CHEST 2V from 05/07/[address] ABDOMEN PELVIS W CON from 05/23/[address] ANGIO ABDOMEN PELVIS from 06/11/2019 FINDINGS: There has been interval placement of a rounded metallic object in the left upper upper thorax. There increased markings at the left lung base. This likely represents fibrotic change which noted ending lower lungs on [address] Correlate clinically to exclude infectious process. There is no free air below the diaphragm. Surgical lumbosacral posterior edil and pedicle screw fixation and additional surgical hardware across the right SI joint that was also present on prior CT. Bowel gas pattern is unremarkable. The renal shadows are partly visible and no large renal stones are visible by x-ray. IMPRESSION: Left basilar lung density likely represents regional fibrotic change, correlate clinically to exclude infectious process. Normal bowel gas pattern. Dictated by: Brenda Lester 11/02/2020 09:44 Brenda Lester in [place] 11/02/2020 09:44
--- NOTE | 2020-11-02 09:26 | HMH.EDUTC ---
[facility] [place] Disposition Clinical Impression: Pleural mass, Adenopathy Disposition: Home, Self-Care Condition on Discharge: Fair Instructions: DI for Acute Abdominal Pain Additional Instructions: Follow-up with your primary care provider, Arianna Wills NP for Dr. Castañeda, in the office either tomorrow at 10 AM for Saturday at 10 AM or 1 PM. Tylenol or ibuprofen for pain. Return to the emergency department if intolerable pain, difficulty breathing, vomiting, or fever. Referrals: Arianna Wills APRN [Primary Care Provider] - Medical Decision Making - Medical Records Medical records reviewed: No: I reviewed the patient's medical records. - Ba Inquiry Pt receiving controlled substance: No Vital Signs: 11/02/20 09:05 11/02/20 10:26 11/02/20 11:29 Temperature 98.4 F 98.2 F Temperature Source Oral Oral Pulse Rate Pulse Rate [Right Brachial] 87 77 80 Respiratory Rate 19 18 17 Blood Pressure Blood Pressure [Right Arm] 132/91 H 131/80 142/79 H Blood Pressure Mean [Right Arm] 104 97 100 Blood Pressure Source [Right Arm] Automatic Cuff Blood Pressure Position Blood Pressure Position [Right Arm] Sitting Sitting 02 Sat by Pulse Oximetry 98 98 97 Oxygen Delivery Method Room Air Room Air Room Air 11/02/20 11:30 11/02/20 12:00 11/02/20 12:49 Temperature 98 F Temperature Source Oral Pulse Rate 78 Pulse Rate [Right Brachial] 76 81 Respiratory Rate 17 18 16 Blood Pressure 137/78 Blood Pressure [Right Arm] 152/77 H Blood Pressure Mean [Right Arm] 102 Blood Pressure Source [Right Arm] Blood Pressure Position Sitting Blood Pressure Position [Right Arm] 02 Sat by Pulse Oximetry 99 97 Oxygen Delivery Method Room Air Room Air Room Air - Lab Data Lab Results 11/02/20 09:40: WBC 12.7 H, RBC 4.58, Hgb 13.8, Hct 42.2, MCV 92.1, MCH 30.1, MCHC 32.7, RDW 13.1, Plt Count 345, MPV 7.1 L, Neut % (Auto) 82.4 H, Lymph % (Auto) 11.0, [place] % (Auto) 5.6, Eos % (Auto) 0.6, Baso % (Auto) 0.3, Neut # (Auto) 10.5 H, Lymph # (Auto) 1.4, [place] # (Auto) 0.7, Eos # (Auto) 0.1, Baso # (Auto) 0.0 11/02/20 09:40: Sodium 128 L, Potassium 3.6, Chloride 92 L, Carbon Dioxide 28, Anion Gap 11.6, BUN 6 L, Creatinine 0.50 L, Estimated Creat Clear 130, Estimated GFR 127, Est GFR ( Amer) 153, Glucose 108 H, Calcium 9.6, Total Bilirubin 0.8, AST 23, ALT 12, Alkaline Phosphatase 140 H, Total Protein 8.0, Albumin 4.3, Globulin 3.7 H, Albumin/Globulin Ratio 1.2, Amylase 33, Lipase 33 11/02/20 09:40: Troponin I < 0.01 11/02/20 12:00: Urine Color Yellow, Urine Appearance Clear, Urine pH 7.5, Ur Specific [place] <= 1.005, Urine Protein Negative, Urine Glucose (UA) Negative, Urine Ketones Trace, Urine Blood Negative, Urine Nitrate Negative, Urine Bilirubin Negative, Urine Urobilinogen 4.0, Ur Leukocyte Esterase Negative, Urine RBC Occasional, Urine WBC 3-5, Ur Squamous Epith Cells 5-10 Result diagrams: 11/02/20 09:40 11/02/20 09:40 Orders (Tests/Meds): ED MEDICATIONS Discontinued Medications Generic Name Dose Route Start Last Admin Trade Name Burakq PRN Reason Stop Dose Admin Iopamidol 100 ml 11/02/20 11:22 11/02/20 11:23 Iopamidol-370 (76%);100ml Bottle IV 11/02/20 11:23 100 ml ONCE ONE Administration Ketorolac Tromethamine 30 mg 11/02/20 11:04 11/02/20 11:26 Ketorolac 30mg/Ml Vial IV 11/02/20 11:05 30 mg ONCE ONE Administration Sodium Chloride 1,000 ml 11/02/20 11:02 11/02/20 11:26 Sodium Chloride 0.9% 1000ml Bag IV 11/02/20 11:03 1,000 ml BOLUS ONE Administration Sodium Chloride 50 ml 11/02/20 11:22 11/02/20 11:22 0.9 % Sodium Chloride 50 Ml Vial IV 11/02/20 11:23 50 ml ONCE ONE Administration Sodium Chloride 10 ml 11/02/20 11:22 11/02/20 11:23 Sodium Chloride 0.9% 10ml Syr (Rad Only) IV 11/02/20 11:23 10 ml ONCE ONE Administration [facility] [place] HPI - General Stated complaint: stomach pain Time Seen by Provider: 11/02/20 09:10 Mode of Arrival: Am
[2020-11-02 09:56] LABS: Basophils % 0.3 % (0.1-2.0); Eosinophils # 0.1 K/mm3 (0.0-0.4); Eosinophils % 0.6 % (0.1-12.0); Hematocrit 42.2 % (37.0-47.0); Hemoglobin 13.8 g/dL (12.2-16.2); Lymphocytes # 1.4 K/mm3 (0.7-4.5); Mean Corpuscular HGB Conc 32.7 g/dL (31.8-35.4); Mean Corpuscular Hemoglobin 30.1 pg (27.0-31.2); Mean Corpuscular Volume 92.1 fl (81-99); Mean Platelet Volume 7.1 fl (7.4-10.4); Monocytes # 0.7 K/mm3 (0.1-1.0); Monocytes % 5.6 % (1.7-9.3); Neutrophils # 10.5 K/mm3 (1.8-7.8); Neutrophils % 82.4 % (37.0-80.0); Platelet Count 345 K/mm3 (142-424); Red Blood Count 4.58 M/mm3 (4.20-5.40); Red Cell Distribution Width 13.1 % (11.5-17.5); White Blood Count 12.7 K/mm3 (4.8-10.8)
[2020-11-02 09:57] LABS: Chloride 92 mmol/L (98-107); Potassium 3.6 mmoL/L (3.5-5.1); Sodium 128 mmol/L (136-145)
[2020-11-02 10:00] LABS: Alanine Aminotransferase 12 U/L (12-78); Albumin Level 4.3 g/dl (3.5-5.0); Albumin/Globulin Ratio 1.2 (1.1-1.8); Alkaline Phosphatase 140 U/L (38-126); Amylase 33 U/L (30-110); Anion Gap 11.6 mEq/L (5-15); Aspartate Amino Transferase 23 U/L (14-36); Bilirubin,Total 0.8 mg/dl (0.2-1.3); Blood Urea Nitrogen 6 mg/dl (7-17); Calcium 9.6 mg/dl (8.4-10.2); Carbon Dioxide 28 mmol/L (22.0-30.0); Creatinine Clearance Estimated 130 mL/min (50-200); Estimated Glomerular Filt Rate 127 ml/min (>60); GFR (African American) 153 ML/MIN (>60); Globulin 3.7 g/dL (1.3-3.2); Glucose 108 mg/dl (74-100); Lipase 33 U/L (23-300)
--- NOTE | 2020-11-02 10:21 | PC.NURSE ---
PATIENT SENT TO ER PER FABI MAYERS APRN FOR FURTHER EVALUATION. REPORTS GIVEN TO Enrico LONGORIA RN
[2020-11-02 10:26] VITALS: BP 131/80; PULSE 77; RESP 18; TEMP 36.8; O2SAT 98; BMI 25.6
--- NOTE | 2020-11-02 10:26 | HMH.EDGENADL ---
ED Disposition Clinical Impression: Pleural mass, Adenopathy Disposition: Home, Self-Care Condition on Discharge: Good Additional Instructions: Follow-up with your primary care provider, Arianna Wills NP for Dr. Castañeda, in the office either tomorrow at 10 AM for Saturday at 10 AM or 1 PM. Tylenol or ibuprofen for pain. Return to the emergency department if intolerable pain, difficulty breathing, vomiting, or fever. Referrals: Arianna Wills APRN [Primary Care Provider] - - Critical Care Critical Care Time: No Attestation: On 11/02/20, the high probability of a clinically significant, sudden or life threatening deterioration of the following system(s) required my full and direct attention, intervention and personal management. The time I documented below is in addition to time spent performing reported procedures but includes the following listed in this critical care notation. Medical Decision Making - Medical Records Medical records reviewed: Yes: I reviewed the patient's medical records. MR Comment: reviewed [facility] [place] visit this date. reviewed labs and abdomen/chest x-ray report from that visit. - Ba Inquiry Pt receiving controlled substance: No Vital Signs: 11/02/20 09:05 11/02/20 10:26 11/02/20 11:29 Temperature 98.4 F 98.2 F Temperature Source Oral Oral Pulse Rate [Right Brachial] 87 77 80 Respiratory Rate 19 18 17 Blood Pressure [Right Arm] 132/91 H 131/80 142/79 H Blood Pressure Mean [Right Arm] 104 97 100 Blood Pressure Source [Right Arm] Automatic Cuff Blood Pressure Position [Right Arm] Sitting Sitting 02 Sat by Pulse Oximetry 98 98 97 Oxygen Delivery Method Room Air Room Air Room Air 11/02/20 11:30 11/02/20 12:00 Temperature Temperature Source Pulse Rate [Right Brachial] 76 81 Respiratory Rate 17 18 Blood Pressure [Right Arm] 152/77 H Blood Pressure Mean [Right Arm] 102 Blood Pressure Source [Right Arm] Blood Pressure Position [Right Arm] 02 Sat by Pulse Oximetry 99 97 Oxygen Delivery Method Room Air Room Air - Lab Data Lab results reviewed: Yes: I reviewed the patient's lab results. Lab Results 11/02/20 09:40: WBC 12.7 H, RBC 4.58, Hgb 13.8, Hct 42.2, MCV 92.1, MCH 30.1, MCHC 32.7, RDW 13.1, Plt Count 345, MPV 7.1 L, Neut % (Auto) 82.4 H, Lymph % (Auto) 11.0, [place] % (Auto) 5.6, Eos % (Auto) 0.6, Baso % (Auto) 0.3, Neut # (Auto) 10.5 H, Lymph # (Auto) 1.4, [place] # (Auto) 0.7, Eos # (Auto) 0.1, Baso # (Auto) 0.0 11/02/20 09:40: Sodium 128 L, Potassium 3.6, Chloride 92 L, Carbon Dioxide 28, Anion Gap 11.6, BUN 6 L, Creatinine 0.50 L, Estimated Creat Clear 130, Estimated GFR 127, Est GFR ( Amer) 153, Glucose 108 H, Calcium 9.6, Total Bilirubin 0.8, AST 23, ALT 12, Alkaline Phosphatase 140 H, Total Protein 8.0, Albumin 4.3, Globulin 3.7 H, Albumin/Globulin Ratio 1.2, Amylase 33, Lipase 33 11/02/20 09:40: Troponin I < 0.01 11/02/20 12:00: Urine Color Yellow, Urine Appearance Clear, Urine pH 7.5, Ur Specific [place] <= 1.005, Urine Protein Negative, Urine Glucose (UA) Negative, Urine Ketones Trace, Urine Blood Negative, Urine Nitrate Negative, Urine Bilirubin Negative, Urine Urobilinogen 4.0, Ur Leukocyte Esterase Negative, Urine RBC Occasional, Urine WBC 3-5, Ur Squamous Epith Cells 5-10 Result diagrams: 11/02/20 09:40 11/02/20 09:40 Orders (Tests/Meds): ED MEDICATIONS Discontinued Medications Generic Name Dose Route Start Last Admin Trade Name Freq PRN Reason Stop Dose Admin Iopamidol 100 ml 11/02/20 11:22 11/02/20 11:23 Iopamidol-370 (76%);100ml Bottle IV 11/02/20 11:23 100 ml ONCE ONE Administration Ketorolac Tromethamine 30 mg 11/02/20 11:04 11/02/20 11:26 Ketorolac 30mg/Ml Vial IV 11/02/20 11:05 30 mg ONCE ONE Administration Sodium Chloride 1,000 ml 11/02/20 11:02 11/02/20 11:26 Sodium Chloride 0.9% 1000ml Bag IV 11/02/20 11:03 1,000 ml BOLUS ONE Administration Sodium Chloride 50 ml 11/02/20 11:22 11/02/20 11:22
--- NOTE | 2020-11-02 10:28 | ECG_ITS ---
APPROVED REPORT Exam: Resting ECG HR:77 bpm ECG Measurements Heart Rate 77 AXES ID 148 P 42 QRSd 68 QRS 5 QT 382 T 68 QTc 432 Conclusion Sinus rhythm with premature atrial complexes Possible Left atrial enlargement Borderline ECG Electronically signed by : Randy Caceres, 11/03/2020 17:27:54
--- NOTE | 2020-11-02 10:36 | CT_ITS ---
PROCEDURE: CT CHEST, ABDOMEN, PELVIS W CON CLINICAL INDICATION: LUQ pain LEFT UPPER QUADRANT PAIN, MID EPIGASTRIC PAIN THREE DAYS COMPARISON: CT CT ANGIO ABDOMEN PELVIS from 06/11/[address] CHEST WO CON from 06/11/[address] ANGIO CHEST from 11/02/2020 TECHNIQUE: IV Contrast: 75ML Isovue 370 Oral Contrast None Axial images obtained with sagittal and coronal reformats. All CT scans at the facility use one or more dose reduction, viz: automated exposure control, ma/kV adjustment per patient size (including targeted exams where dose is matched to indication, i.e. head), or iterative reconstruction technique. FINDINGS: CHEST: There has been interval development of a posterior pleural-based density with irregular anterior margin which extends approximately 4 centimeters along the pleura of laterally a and 3 centimeters in craniocaudal dimension. This is worrisome for malignancy, particularly in context of the additional findings further described below. However could represent a peripheral area of infarct or consolidation or aspiration. Pulmonary referral is recommended. Interval progression of fibrotic change since 2019. There is partial visualization of the thyroid gland. There is increased subcarinal and AP window soft tissue compared to 2019. In 2019 there or multiple discrete lymph nodes identified in this area. This likely represents confluent adenopathy although would contains multiple punctate calcifications in sclerosing mediastinum this could be considered. There is encasement of the bilateral mainstem right and left bronchi. There is bilateral hilar adenopathy. There is no right or left pleural effusion. There is a 3 centimeter x 2.5 centimeter soft tissue density adjacent to the celiac axis with low central density suspicious for a necrotic lymph node. Additional smaller but enlarged lymph node is present adjacent to the distal esophagus. ABDOMEN & PELVIS: There is no intraperitoneal free air. There is a small amount of pelvic free fluid. This is abnormal in a female who is not of reproductive age. The adrenal glands, kidneys, spleen, pancreas, liver and gallbladder have a normal appearance. Urinary bladder is unremarkable. No uterus or ovaries are visualized, likely prior hysterectomy and bilateral oophorectomy, correlate with patient history. No oral contrast has been given which reduces evaluation of the GI tract. There is probable sigmoid diverticulosis. There is no definite perforated diverticulitis although the right pelvic free fluid lies near an area of diverticulosis. There is hyperenhancement of the wall of the cecum and ascending colon worrisome for infection or inflammatory bowel disease. There is irregular narrowing of the ascending colon associated with the abnormal enhancement and nondistended fluid filled loops of small bowel and dependent fluid in the cecum. Further evaluation to evaluate for malignancy if resolution following treatment for infectious process or inflammatory bowel disease is completed. Large 3 centimeter x 2.5 centimeter necrotic lymph node adjacent to the celiac axis with smaller but enlarged lymph nodes inferior and superior the aorta remains normal in position. This there is indistinctly marginated soft tissue cephalad to the necrotic lymph node adjacent to the GE junction. There is no pelvic adenopathy. There is scattered atherosclerotic calcification throughout the vasculature including the origin of the superior mesenteric artery. There is redemonstration of the compression deformity with severe loss of height of an upper thoracic vertebral body. There are no worrisome lucent or sclerotic lesions. IMPRESSION: Multiple findings consisten
[2020-11-02 11:07] LABS: Troponin I < 0.01 ng/ml (0.00-0.034)
[2020-11-02 11:29] VITALS: BP 142/79; PULSE 80; RESP 17; O2SAT 97
[2020-11-02 11:30] VITALS: PULSE 76; RESP 17; O2SAT 99
[2020-11-02 12:00] VITALS: BP 152/77; PULSE 81; RESP 18; O2SAT 97
[2020-11-02 12:06] LABS: Microscopic, Urine URINE MICROSCOPIC (MICROSCOPIC)
[2020-11-02 12:08] LABS: Appearance,Urine CLEAR (Clear); Bilirubin,Urine Negative (Negative); Blood, Urine Negative (Negative); Color,Urine YELLOW (Yellow); Glucose,Urine (UA) Negative (Negative); Ketones,Urine TRACE (Negative); Leukocyte Esterase,Urine Negative (Negative); Nitrate,Urine Negative (Negative); PH,Urine 7.5 (5.0-8.5); Protein,Urine Negative (Negative); Specific Gravity, Urine <= 1.005 (1.005-1.030)
--- NOTE | 2020-11-02 12:31 | PC.NURSE ---
Provider at bedside discussing ct results and plan of care.
[2020-11-02 12:34] LABS: RBC,Urine Occasional #/hpf (0-3)
[2020-11-02 12:49] VITALS: BP 137/78; PULSE 78; RESP 16; TEMP 36.6; O2SAT 98
== END 2020-11-02 12:51 | disposition home or self-care (01) ==
LOC: UTC 10:14 → ER 10:18
PROVIDERS: Nurse Practitioner Family; Emergency Provider Emergency Medicine; PCP Nurse Practitioner Family
DX: J94.8 Other specified pleural conditions (principal); R59.9 Enlarged lymph nodes, unspecified; K21.9 Gastro-esophageal reflux disease without esophagitis; E78.5 Hyperlipidemia, unspecified; I10 Essential (primary) hypertension; F17.210 Nicotine dependence, cigarettes, uncomplicated
CPT/HCPCS: 71275; 74021; 74177; 80053; 81001; 82150; 83690; 84484; 85025; 93005; 96365; 96375; 99283; Q9967

== ENCOUNTER → 2020-11-03 12:53 | Outpatient (CLI) | payer MEDICARE, SELFPAY ==
[2020-11-03 13:39] LABS: C-Reactive Protein 105.2 mg/L (0-4)
[2020-11-03 15:21] LABS: Prothrombin Time 11.4 seconds (9.4-11.8)
[2020-11-03 15:22] LABS: INR 1.03 (0.9-1.1)
[2020-11-06 12:36] LABS: Aspergillus flavus Negative (Neg:<1:1); Aspergillus fumigatus Negative (Neg:<1:1); Aspergillus niger Negative (Neg:<1:1)
[2020-11-06 16:58] LABS: Blastomyces Antibody Negative (Neg:<1:1)
[2020-11-07 16:04] LABS: Histoplasma Gal'mannan Ag Ur <0.5 (<0.5 ng/mL)
[2020-11-07 16:46] LABS: QuantiFERON-TB Gold Plus Negative (Negative)
== END ==
PROVIDERS: Visit Provider Internal Medicine Pulmonary Disease
DX: J84.10 Pulmonary fibrosis, unspecified (principal); R06.00 Dyspnea, unspecified; J94.8 Other specified pleural conditions; R59.0 Localized enlarged lymph nodes
CPT/HCPCS: 36415; 85610; 86140; 86480; 86606; 86612; 87385

== ENCOUNTER → 2020-11-22 13:42 | Outpatient (CLI) | payer MEDICARE, SELFPAY | PROVIDERS: PCP Nurse Practitioner Family; Visit Provider Internal Medicine Pulmonary Disease | DX: Z01.818 Encounter for other preprocedural examination (principal); Z11.52 Encounter for screening for COVID-19; R93.89 Abnormal findings on diagnostic imaging of other specified body structures; R59.0 Localized enlarged lymph nodes; F17.210 Nicotine dependence, cigarettes, uncomplicated | CPT/HCPCS: U0003 ==

== ENCOUNTER 2020-11-23 09:29 | Day surgery (SDC) | payer MEDICARE, SELFPAY ==
[2020-11-21 17:08] VITALS: BMI 25.7
[2020-11-23] VITALS (12 sets, daily range): BP systolic 91–137; BP diastolic 55–85; PULSE 61–89; RESP 15–18; TEMP 36.1–36.6; O2SAT 91–98
--- NOTE | 2020-11-23 | XR_ITS ---
PROCEDURE: XR CHEST AP CLINICAL HISTORY: IN OR BRONCHOSCOPY WITH BX COMPARISON: CR CXR CHEST(2 VIEWS-NOT PORTABLE) from 07/31/2017 CR XR CHEST 2V from 05/07/2019 CR XR CHEST 2V from 05/23/[address] ANGIO CHEST from 11/02/2020 FINDINGS: Fluoroscopy time: 158.7 seconds. Single image submitted with the bronchus scope and biopsy device noted in the right lower lobe area. IMPRESSION: Status post bronchoscopy with biopsy with fluoro guidance Dictated by: Khadar Mcnamara MD 11/23/2020 17:30 Khadar Mcnamara MD in [place] 11/23/2020 17:30
--- NOTE | 2020-11-23 11:39 | HMH.ANESCL ---
[facility] Anesthesia Checklist - Patient Identification Patient Identification: Arm Band - Structural Data Admitted From: Home Planned Operative Procedure/s: Bronchoscopy with EBUS Consent for Planned Operative Procedure(s) Verified: Yes - Additional verifications Anesthesia Reactions: No Hx Blood Transfusions: No Blood Transfusion Reaction: Yes - Airway Assessment C-Spine Mobility Assessed: Yes TMJ Mobility Assessed: Yes Dentition: Good Dentition - Neurological Assessment Level of Consciousness: Awake, Alert, Appropriate, Follows Commands Hx Seizures: No Numbness or tingling in extremities: No - Anesthesia Plan Anesthesia Risk discussed: Yes Anesthesia Plan: Verified ASA Class: II Anesthesia Type: General [facility] History I have reviewed the patient's past medical history: Yes Medical History: Reports:: Chronic Obstructive Pulmonary Disease (COPD), Gastroesophageal Reflux Disease(GERD), Hyperlipidemia, Hypertension, Palpitations Denies:: Cancer, Diabetes Mellitus Type 1, Diabetes Mellitus Type 2, Internal Pacemaker, MRSA, Seizures *Have you ever received a pneumonia vaccine?: Yes *Have you received a flu vaccine this season?: Yes Other Medical History: Reports: Arthritis, Blood Transfusion Reaction, Hypothyroidism, Thyroid Disease Anesthesia experience/problems:: None Laterality Cases: Bilateral: Carpal Tunnel Release Other Surgeries: Yes: , Hysterectomy-Total, Hysterectomy-Partial, Sinus Surgery, Thyroidectomy, Tubal Ligation, Other. No: Pacemaker Amputation: No Fractures: Yes - *Social History Smoking Status: Current every day smoker Tobacco Type: cigarettes # Packs/Day (cigarettes): 1 #Yrs smoked (if former smoker): 30 Smoking End Date: 10/2020 Alcohol Intake: current Alcohol Intake Frequency:: 0-2 drinks per day Substance Use Type: denies use *Occupational Status:: other Housing: house Household Members: spouse *Travel in the last 8 weeks: None Family Hx:: Coronary Artery Disease
--- NOTE | 2020-11-23 13:46 | P.PN_ITS ---
[facility] Anesthesia Record Part I Intake, IV Amount: 2,000 Estimated blood loss (mL): 0 Urine output (mL): 0 Blood Pressure: 95/63 SaO2: 93 Pulse Rate: 87 Respiratory Rate: 15 Temperature: 97 F Patient is:: Drowsy Stable to PACU at:: 13:42
--- NOTE | 2020-11-23 13:47 | XR_ITS ---
PROCEDURE: XR CHEST PORTABLE CLINICAL HISTORY: bronchoscopy with ebus Follow-up biopsy, mediastinal/hilar mass COMPARISON: CR [id number] from 07/31/2017 CR XR CHEST 2V from 05/07/2019 CR XR CHEST 2V from 05/23/[address] ANGIO CHEST from 11/02/2020 CR XR CHEST AP from 11/23/2020 FINDINGS: Normal heart size. Prominent mediastinum There are prominent interstitial changes with COPD. No evidence of pneumothorax. No acute bony finding. There are old right-sided rib fractures. No acute bony abnormalities. IMPRESSION: No acute findings. Dictated by: Khadar Mcnamara MD 11/23/2020 15:49 Khadar Mcnamara MD in [place] 11/23/2020 15:49
--- NOTE | 2020-11-23 14:20 | HMH.BRONCH ---
- Procedure: Date: 11/23/20 Patient Date of :: 1960 Procedure Performed:: EBUS FNA, bronchoscopy with BAL and transbronchial biopsy. Indications:: Mediastinal and hilar lymphadenopathy, pulmonary infiltrate Performing Provider:: Tremayne Torres MD Referring Provider:: Dr. Castañeda Sedation:: General anesthesia Procedure:: Bronchoscopy with EBUS FNA, bronchoalveolar lavage and transbronchial lung biopsy. A clean EBUS bronchoscopy was advanced to the ET tube and lymph node surveillance was performed, patient noted to have enlarged station 10 R, 4R, 7 and 10 L lymphadenopathies. EBUS guided FNA was performed in each of this lymph node stations with a total of 5 passes. Pathology at the bedside did not see any evidence of malignancy or granulomatous inflammation. Only seen nonspecific reactive macrophages. EBUS samples were also sent for bacterial fungal and AFB cultures. After EBUS was completed EBUS bronchoscopy was retracted and replaced by diagnostic bronchoscopy. Airways were examined up with the subsegmental bronchi in both sides with no obvious abnormalities. Bronchoalveolar lavage was performed of the left lower lobe posterior segment. A total of 60 cc of saline was instilled with a return of 25 cc that was sent for BAL differential, bacterial fungal and AFB stain and culture along with cytopathology. After this transbronchial lung biopsies was performed in the right lower lobe posterior segment. A total of 7 biopsies was performed, 5 were sent in formalin for cytopathology. 2 other biopsies were sent for bacterial fungal and AFB cultures. Patient tolerated the procedure well with no complications. Postprocedure patient appeared to have bilateral coarse breath sounds, ordered duo nebs. Will follow with a chest x-ray. Findings:: Please see the procedure note Recommendations:: Follow with the pathology and micro cultures. Follow in the clinic as previously scheduled. Complications:: None Estimated blood obtained (mL): 10
--- NOTE | 2020-11-25 12:25 | HMH.ANESII ---
[facility] Anesthesia Record Part II Discharge Time: 14:24 Destination: Surgical Day Care (OP Surgery) PACU nurse assessment reviewed?: Yes Patient Condition:: Good Anesthesia Complications:: None Swallowing reflex intact?: Yes Cyanosis?: No Blood Pressure: 114/85 Pulse Rate: 74 Temperature: 97.8 F Mental Status: Alert & Oriented Pain level:: 0 Nausea and/or vomitting:: None Intake, IV Amount: 800
[2020-11-25 12:28] VITALS: BP 114/85; PULSE 74; TEMP 36.6
== END 2020-11-23 15:42 | disposition home or self-care (01) ==
LOC: OR 09:31
PROVIDERS: PCP Nurse Practitioner Family; Visit Provider Internal Medicine Pulmonary Disease
DX: R93.89 Abnormal findings on diagnostic imaging of other specified body structures (principal); R59.0 Localized enlarged lymph nodes; Z72.0 Tobacco use; Z79.899 Other long term (current) drug therapy; R91.8 Other nonspecific abnormal finding of lung field
CPT/HCPCS: 31624; 31628; 31653; 71045; 76000; 87070; 87102; 87116; 87186; 87205; 87206; 87220; 88112; 88172; 88173; 88305; 89051; 96374; J2405

== ENCOUNTER → 2020-12-19 08:46 | Outpatient (CLI) | payer MEDICARE, SELFPAY ==
--- NOTE | 2020-12-19 08:47 | MM_ITS ---
PROCEDURE: MM DIG SCREENING MAMM BI W/CAD Digital Breast Tomosynthesis Included CLINICAL INDICATION: BREAST CANCER SCREENING There is no personal or family history breast cancer. There has been a previous biopsy left breast for benign disease. COMPARISON: MG DMSB DIG MAMM-SCREEN AP from 07/23/2014 MG DMSB DIG MAMM-SCREEN AP from 07/19/2016 [facility] SCBI MM Dig screening mamm BI w/CAD from 10/03/2018 TECHNIQUE: Standard CC and MLO images and 3D Tomosynthesis was obtained. R2 CAD reviewed. FINDINGS: Scattered diffuse fibroglandular densities are seen throughout both breasts. Findings are fairly symmetrical bilaterally. There is no suspicious lesion and no suspicious microcalcifications. IMPRESSION: Fibrofatty parenchyma with no suspicious lesions seen BI-RAD Category: 1 Negative FOLLOW-UP: 1YR 1 Year Follow-up (A letter has been sent to the patient regarding results of the study.) Dictated by: Dr. Lukas Matute MD 12/23/2020 08:09 Dr. Lukas Matute MD in [place] 12/23/2020 08:09
== END ==
PROVIDERS: PCP Nurse Practitioner Family; Visit Provider Nurse Practitioner Family
DX: Z12.31 Encounter for screening mammogram for malignant neoplasm of breast (principal)
CPT/HCPCS: 77063; 77067

== ENCOUNTER → 2021-03-04 07:49 | Outpatient (CLI) | payer MEDICARE, SELFPAY ==
[2021-03-04 08:14] LABS: Basophils # 0.1 K/mm3 (0-0.2); Basophils % 1.1 % (0.1-2.0); Eosinophils # 0.3 K/mm3 (0.0-0.4); Eosinophils % 3.2 % (0.1-12.0); Hematocrit 44.4 % (37.0-47.0); Hemoglobin 15.5 g/dL (12.2-16.2); Lymphocytes # 1.7 K/mm3 (0.7-4.5); Lymphocytes % 21.7 % (10-50); Mean Corpuscular HGB Conc 34.9 g/dL (31.8-35.4); Mean Corpuscular Hemoglobin 29.6 pg (27.0-31.2); Mean Corpuscular Volume 84.9 fl (81-99); Mean Platelet Volume 7.1 fl (7.4-10.4); Monocytes # 0.4 K/mm3 (0.1-1.0); Monocytes % 5.2 % (1.7-9.3); Neutrophils # 5.4 K/mm3 (1.8-7.8); Neutrophils % 68.8 % (37.0-80.0); Platelet Count 294 K/mm3 (142-424); Red Blood Count 5.22 M/mm3 (4.20-5.40); Red Cell Distribution Width 12.7 % (11.5-17.5); White Blood Count 7.9 K/mm3 (4.8-10.8)
[2021-03-04 08:35] LABS: Chloride 86 mmol/L (98-107); Potassium 4.1 mmoL/L (3.5-5.1); Sodium 121 mmol/L (136-145)
[2021-03-04 08:38] LABS: Alanine Aminotransferase 13 U/L (12-78); Albumin Level 4.5 g/dl (3.5-5.0); Albumin/Globulin Ratio 1.7 (1.1-1.8); Alkaline Phosphatase 162 U/L (38-126); Anion Gap 15.1 mEq/L (5-15); Aspartate Amino Transferase 30 U/L (14-36); Bilirubin,Total 0.8 mg/dl (0.2-1.3); Blood Urea Nitrogen 2 mg/dl (7-17); Carbon Dioxide 24 mmol/L (22.0-30.0); Estimated Glomerular Filt Rate 163 ml/min (>60); GFR (African American) 198 ML/MIN (>60); Globulin 2.6 g/dL (1.3-3.2); Total Protein,Serum 7.1 g/dl (6.3-8.2)
[2021-03-04 08:39] LABS: Calcium 8.9 mg/dl (8.4-10.2); Glucose 99 mg/dl (74-100)
--- NOTE | 2021-03-04 08:42 | MR_ITS ---
PROCEDURE INFORMATION: Exam: MR Head Without and With Contrast Exam date and time: 03/04/2021 8:42 AM Age: 60 years old Clinical indication: Other: HX lung CA R/O mets; Patient HX: PT was recently diagnosed with lung CA. 13 ml prohance was used for contrast lot # [id number] exp 11/2022 bun 2 creat .4 gfr 163 TECHNIQUE: Imaging protocol: MR of the head without and with intravenous contrast. Contrast material: ISOVUE; Contrast volume: 13 ml; Contrast route: IV; COMPARISON: None available. FINDINGS: Brain: There is no extra-axial collection or intra-axial mass. Mild diffuse volume loss is within the range of normal for patient age. There are foci of increased T2/FLAIR hyperintensity within the periventricular and subcortical white matter and substance of the alannah, nonspecific but typically small-vessel ischemia in this age group. Chronic lacunar infarcts involve the alannah. There is no abnormal enhancement within the brain. Cerebral ventricles: Normal. No ventriculomegaly. Bones/joints: Unremarkable. Paranasal sinuses: Normal as visualized. No acute sinusitis. Mastoid air cells: Normal as visualized. No mastoid effusion. Orbital cavity: Unremarkable. Soft tissues: Unremarkable. IMPRESSION: No acute findings.
== END ==
LOC: LAB 07:51 → RAD 08:29
PROVIDERS: Referring Provider Surgery; Visit Provider Internal Medicine Medical Oncology
DX: C34.90 Malignant neoplasm of unspecified part of unspecified bronchus or lung (principal); R06.02 Shortness of breath
CPT/HCPCS: 36415; 70553; 80053; 85025; A9576

== ENCOUNTER → 2021-03-07 09:46 | Outpatient (CLI) | payer MEDICARE, SELFPAY | PROVIDERS: Visit Provider Surgery | DX: Z01.812 Encounter for preprocedural laboratory examination (principal); Z11.52 Encounter for screening for COVID-19 | CPT/HCPCS: U0003 ==

== ENCOUNTER 2021-03-08 10:21 | Day surgery (SDC) | payer MEDICARE, SELFPAY ==
[2021-03-07 13:01] VITALS: BMI 24.7
[2021-03-08 10:35] VITALS: BP 146/90; PULSE 64; RESP 18; TEMP 36.4; O2SAT 100
--- NOTE | 2021-03-08 11:46 | XR_ITS ---
PROCEDURE: XR CHEST AP CLINICAL HISTORY: PORT A CATH IN OR COMPARISON: CR XR CHEST 2V from 05/23/[address] ANGIO CHEST from 11/02/2020 CR XR CHEST PORTABLE from 11/23/2020 CR XR CHEST AP from 11/23/2020 FINDINGS: A single fluoroscopic spot films taken in surgery shows the Port-A-Cath with the tip in the SVC just beyond the junction with the innominate vein. IMPRESSION: Satisfactory Port-A-Cath placement Dictated by: Dr. Lukas Matute MD 03/08/2021 11:52 Dr. Lukas Matute MD in [place] 03/08/2021 11:52
--- NOTE | 2021-03-08 11:58 | HMH.ANESCL ---
[facility] Anesthesia Checklist - Patient Identification Patient Identification: Arm Band - Structural Data Admitted From: Home Planned Operative Procedure/s: Placement of Venous Access Port Consent for Planned Operative Procedure(s) Verified: Yes Verified Documents: Surgical Consent, History and Physical - NPO Status Verified Time NPO: 00:00 - Additional verifications Anesthesia Reactions: No Hx Blood Transfusions: No Blood Transfusion Reaction: Yes - Airway Assessment C-Spine Mobility Assessed: Yes (mp2) TMJ Mobility Assessed: Yes Dentition: Good Dentition - Neurological Assessment Level of Consciousness: Awake, Alert - Anesthesia Plan Anesthesia Risk discussed: Yes Anesthesia Plan: Verified ASA Class: III Anesthesia Type: MAC [facility] History I have reviewed the patient's past medical history: Yes Medical History: Reports:: Cancer (lung), Chronic Obstructive Pulmonary Disease (COPD), Gastroesophageal Reflux Disease(GERD), Hyperlipidemia, Hypertension, Palpitations Denies:: Diabetes Mellitus Type 1, Diabetes Mellitus Type 2, Internal Pacemaker, MRSA, Seizures *Have you ever received a pneumonia vaccine?: No *Have you received a flu vaccine this season?: Yes Other Medical History: Reports: Arthritis, Blood Transfusion Reaction, Hypothyroidism, Thyroid Disease Anesthesia experience/problems:: nac Laterality Cases: Bilateral: Carpal Tunnel Release Other Surgeries: Yes: , Hysterectomy-Total, Hysterectomy-Partial, Sinus Surgery, Thyroidectomy, Tubal Ligation, Other. No: Pacemaker Amputation: No Fractures: Yes - *Social History Last grade of school completed: High school graduate Smoking Status: Former smoker Tobacco Type: cigarettes # Packs/Day (cigarettes): 1 #Yrs smoked (if former smoker): 30 Alcohol Intake: current Alcohol Intake Frequency:: holidays/special occasions only Substance Use Type: denies use *Occupational Status:: disabled Housing: house Household Members: spouse *Travel in the last 8 weeks: None Family Hx:: No significant family history
--- NOTE | 2021-03-08 12:07 | P.OP_ITS ---
Date of procedure: 03/08/21 Pre-op Diagnosis:: Metastatic small cell carcinoma of the lung Post-op Diagnosis:: Same Procedure performed:: Placement of single-lumen 8 [place] open-ended tunneled catheter with reservoir port in left subclavian vein (PowerPort) Surgeon:: Keyur Bacon MD POLICE COMMANDING OFFICER:: Ashok Kaur Anesthesia: MAC, local Estimated blood loss (mL): 5 Clinical Note:: Patient is a pleasant 60-year-old female referred by Dr. Nanci Robin for port placement. Patient states that in October of this year she had some abdominal pain and gas pains. She was seen in the urgent treatment center and underwent CT scan which revealed findings of necrotic celiac lymph node. She did undergo CT scan and was found to have left pleural mass. Ultimately biopsy was performed at [facility] and this returned as small cell lung cancer. Operative findings:: Normal anatomy Operative note:: Patient was taken to the operating room. She was given preoperative intravenous antibiotics. In the operating room she was placed in a supine position. Adequate intravenous sedation was achieved. Upper chest and neck was prepped and draped in standard surgical fashion bilaterally. She was positioned in Trendelenburg position. Local anesthetic was infiltrated medial to the deltopectoral groove inferior to the clavicle. After several passes of the 18- gauge needle ultimately the left subclavian vein was cannulated. Guidewire was inserted. Fluoroscopy was used to confirm appropriate position of the guidewire. Small incision was made at the insertion site. Subcutaneous tissues were dilated with the dilator and breakaway sheath. Dilator and guidewire were removed. Open-ended 8 Argentine catheter was inserted through the breakaway sheath which was then removed. Fluoroscopy was used once again to confirm appropriate positioning of the catheter and placement of the tip of the catheter near the atriocaval junction. Skin was marked the skin marker for planned subcutaneous tunnel and pocket. Local anesthetic was infiltrated. Skin incision was made at site for the subcutaneous pocket and using electrocautery subcutaneous pocket was created. Catheter was tunneled subcutaneously. Fluoroscopy was used to confirm positioning once again. Catheter was cut to the appropriate length. Prior to cutting this did require some readvancement of the catheter so as to place the tip near the atriocaval junction. Once the catheter was cut to the appropriate length it was secured to the reservoir port. [place] port was secured into the subcutaneous pocket with 2-0 PDS suture. Port aspirated and flushed without difficulty using saline. It was then flushed with heparinized saline. There was good hemostasis. Subdermal tissues were closed with a running 2-0 Vicryl. Skin was closed with 3-0 strata fix. Clean dry sterile dressing was applied. Condition: stable Disposition: PACU Complications:: None immediately apparent
[2021-03-08 12:11] VITALS: BP 129/78; PULSE 66; RESP 16; TEMP 36.1; O2SAT 97
--- NOTE | 2021-03-08 12:17 | XR_ITS ---
PROCEDURE: XR CHEST PORTABLE CLINICAL HISTORY: port placement COMPARISON: CT CT ANGIO CHEST from 11/02/2020 CR XR CHEST PORTABLE from 11/23/2020 CR XR CHEST AP from 11/23/2020 CR XR CHEST AP from 03/08/2021 FINDINGS: The MediPort catheter seen entering the left subclavian vein with the tip in the SVC above the right atrium. Lung reese are well expanded and there ill-defined hazy opacities in both infrahilar regions and lower lobes slightly more prominent right side than left and suspicious for pneumonic infiltrates. However some of these findings could be chronic and secondary to interstitial prominence. Cardiac size is normal and there is no vascular congestion and there is no pleural fluid is no pneumothorax. IMPRESSION: Satisfactory placement of MediPort catheter, bilateral basilar ill-defined opacities with chronic changes versus acute bilateral lower lobe pneumonic infiltrate superimposed upon underlying chronic interstitial changes and suggest clinical correlation. Dictated by: Dr. Lukas Matute MD 03/08/2021 12:53 Dr. Lukas Matute MD in [place] 03/08/2021 12:53
[2021-03-08 12:26] VITALS: BP 142/77; PULSE 66; RESP 16; O2SAT 98
[2021-03-08 12:41] VITALS: BP 151/87; PULSE 61; RESP 18; O2SAT 98
[2021-03-08 12:56] VITALS: BP 149/75; PULSE 62; RESP 18; TEMP 36.3; O2SAT 100
[2021-03-08 13:07] VITALS: BP 155/77; PULSE 63; RESP 18; TEMP 36.3; O2SAT 99
== END 2021-03-08 13:07 | disposition home or self-care (01) ==
LOC: OR 10:23
PROVIDERS: PCP Nurse Practitioner Family; Visit Provider Surgery
DX: C34.90 Malignant neoplasm of unspecified part of unspecified bronchus or lung (principal); J44.9 Chronic obstructive pulmonary disease, unspecified; K21.9 Gastro-esophageal reflux disease without esophagitis; E78.5 Hyperlipidemia, unspecified; R00.2 Palpitations; R56.9 Unspecified convulsions; M19.90 Unspecified osteoarthritis, unspecified site; E03.9 Hypothyroidism, unspecified; Z87.891 Personal history of nicotine dependence; Z79.82 Long term (current) use of aspirin; Z79.899 Other long term (current) drug therapy
CPT/HCPCS: 36561; 77001; 71045; 76000; 96374; C1788; J1642

== ENCOUNTER 2021-03-13 08:15 | Outpatient (CLI) | payer MEDICARE, SELFPAY ==
[2021-03-13] VITALS (17 sets, daily range): BP systolic 126–149; BP diastolic 66–86; PULSE 61–82; RESP 17; TEMP 36.4–36.6; O2SAT 99–100; BMI 22.8
--- NOTE | 2021-03-13 09:15 | PC.NURSE ---
started carboplatin at this time.
--- NOTE | 2021-03-13 09:32 | PC.NURSE ---
0932 this nurse sat down with pt and went over current medications, past medical history and educated the pt on preventing chemo exposures to household members and the possible side effects of chemo regimen. pt acknowledged teaching and reported understanding of material.
--- NOTE | 2021-03-13 10:15 | PC.NURSE ---
etoposide started at this time. pt tolerating infusion well. no complaints at this time.
[2021-03-13 10:35] LABS: Thyroid Stimulating Hormone 0.83 uIU/mL (0.465-4.68)
--- NOTE | 2021-03-13 11:21 | PC.NURSE ---
pt ambulated to bathroom independently at this time.
--- NOTE | 2021-03-13 11:31 | PC.NURSE ---
pt currently eating lunch. pt tolerating infusion well. no complaints at this time.
--- NOTE | 2021-03-13 12:00 | PC.NURSE ---
[employer] started at this time.
--- NOTE | 2021-03-13 14:53 | PC.NURSE ---
informed pharmacy that pt labs were back. spoke with leon
[2021-03-14 12:16] LABS: Adrenocorticotropic Hormone 89.8 pg/mL (7.2-63.3)
== END 2021-03-13 13:35 | disposition home or self-care (01) ==
LOC: INF 08:22
PROVIDERS: Visit Provider Internal Medicine Medical Oncology
DX: Z51.11 Encounter for antineoplastic chemotherapy (principal); Z79.899 Other long term (current) drug therapy; C34.92 Malignant neoplasm of unspecified part of left bronchus or lung
CPT/HCPCS: 82024; 82533; 84443; 96413; 96415; 96417; J2469; J9022; J9045; J9181; Q0166

== ENCOUNTER 2021-03-14 08:10 | Outpatient (CLI) | payer MEDICARE, SELFPAY ==
[2021-03-14 09:00] VITALS: BP 123/68; PULSE 71; RESP 18; TEMP 36.5; O2SAT 97
[2021-03-14 09:15] VITALS: BP 118/58; PULSE 74; RESP 18
[2021-03-14 09:45] VITALS: BP 101/58; PULSE 71; RESP 18
[2021-03-14 10:00] VITALS: BP 146/61; PULSE 75; RESP 18
[2021-03-14 10:33] VITALS: BP 139/76; PULSE 71; RESP 18
[2021-03-14 10:55] VITALS: BP 145/79; PULSE 70; RESP 18
== END 2021-03-14 10:55 | disposition home or self-care (01) ==
LOC: INF 08:12
PROVIDERS: Visit Provider Internal Medicine Medical Oncology
DX: Z51.11 Encounter for antineoplastic chemotherapy (principal); C34.92 Malignant neoplasm of unspecified part of left bronchus or lung; Z79.899 Other long term (current) drug therapy
CPT/HCPCS: 96413; 96415; J1642; J9181; Q0166

== ENCOUNTER 2021-03-15 08:40 | Outpatient (CLI) | payer MEDICARE, SELFPAY ==
[2021-03-15] VITALS (9 sets, daily range): BP systolic 101–154; BP diastolic 47–87; PULSE 62–74; RESP 17; TEMP 36.4; O2SAT 99–100
--- NOTE | 2021-03-15 16:34 | DIET.NUTRFU ---
Attempted to contact pt for nutrition counseling rt receiving chemotherapy. Unable to contact pt at this time, VM left describing nutrition counseling services and pt encouraged to reach out with any nutritional concerns.
== END 2021-03-15 11:43 | disposition home or self-care (01) ==
LOC: INF 08:45
PROVIDERS: Visit Provider Internal Medicine Medical Oncology
DX: Z51.11 Encounter for antineoplastic chemotherapy (principal); C34.92 Malignant neoplasm of unspecified part of left bronchus or lung
CPT/HCPCS: 96413; 96415; J1642; J9181; Q0166

== ENCOUNTER 2021-04-03 08:31 | Outpatient (CLI) | payer MEDICARE, SELFPAY ==
[2021-04-03] VITALS (13 sets, daily range): BP systolic 101–143; BP diastolic 52–96; PULSE 62–75; RESP 18; O2SAT 100; BMI 22.9
[2021-04-03 08:50] LABS: Basophils % 0.8 % (0.1-2.0); Eosinophils # 0.1 K/mm3 (0.0-0.4); Eosinophils % 2.3 % (0.1-12.0); Hematocrit 30.5 % (37.0-47.0); Hemoglobin 10.9 g/dL (12.2-16.2); Lymphocytes % 50.8 % (10-50); Mean Corpuscular HGB Conc 35.8 g/dL (31.8-35.4); Mean Platelet Volume 8.7 fl (7.4-10.4); Monocytes # 0.4 K/mm3 (0.1-1.0); Monocytes % 9.8 % (1.7-9.3); Neutrophils # 1.5 K/mm3 (1.8-7.8); Neutrophils % 36.3 % (37.0-80.0); Platelet Count 365 K/mm3 (142-424); Red Blood Count 3.63 M/mm3 (4.20-5.40); Red Cell Distribution Width 14.5 % (11.5-17.5)
[2021-04-03 08:58] LABS: Alanine Aminotransferase 12 U/L (12-78); Albumin Level 3.8 g/dl (3.5-5.0); Albumin/Globulin Ratio 1.6 (1.1-1.8); Alkaline Phosphatase 109 U/L (38-126); Anion Gap 13.4 mEq/L (5-15); Aspartate Amino Transferase 23 U/L (14-36); Bilirubin,Total 0.4 mg/dl (0.2-1.3); Blood Urea Nitrogen 3 mg/dl (7-17); Calcium 8.4 mg/dl (8.4-10.2); Carbon Dioxide 22 mmol/L (22.0-30.0); Chloride 94 mmol/L (98-107); Creatinine Clearance Estimated 150 mL/min (50-200); Estimated Glomerular Filt Rate 163 ml/min (>60); GFR (African American) 198 ML/MIN (>60); Globulin 2.4 g/dL (1.3-3.2); Glucose 87 mg/dl (74-100); Potassium 4.4 mmoL/L (3.5-5.1); Sodium 125 mmol/L (136-145); Total Protein,Serum 6.2 g/dl (6.3-8.2)
[2021-04-03 09:04] LABS: MANUAL DIFFERENTIAL MANUAL DIFFERENTIAL (MANUAL DIFF)
[2021-04-03 09:33] LABS: Eosinophils % 3 % (0-3); Hypersegmented Neutrophils 1+; Lymphocytes % 59 % (10-50); Monocytes % 3 % (2-9); Neutrophils % 32 % (42-76); Platelet Estimate Normal; RBC Morphology Normal; Total Cells Counted 100
[2021-04-04 13:40] LABS: Adrenocorticotropic Hormone 58.4 pg/mL (7.2-63.3)
== END 2021-04-03 13:50 | disposition home or self-care (01) ==
LOC: INF 08:31
PROVIDERS: Visit Provider Internal Medicine Medical Oncology
DX: Z51.11 Encounter for antineoplastic chemotherapy (principal); C34.92 Malignant neoplasm of unspecified part of left bronchus or lung; Z79.899 Other long term (current) drug therapy
CPT/HCPCS: 80053; 82024; 82533; 84443; 85007; 85025; 96413; 96415; 96417; J1642; J2469; J9022; J9045; J9181; Q0166

== ENCOUNTER 2021-04-04 09:25 | Outpatient (CLI) | payer MEDICARE, SELFPAY ==
[2021-04-04 10:10] VITALS: BP 122/67; PULSE 64; RESP 18; O2SAT 100
[2021-04-04 10:40] VITALS: BP 127/71; PULSE 77; RESP 18
[2021-04-04 11:10] VITALS: BP 124/74; PULSE 68; RESP 18
[2021-04-04 11:40] VITALS: BP 124/71; PULSE 72; RESP 18
[2021-04-04 11:58] VITALS: BP 136/87; PULSE 77; RESP 18
== END 2021-04-04 11:58 | disposition home or self-care (01) ==
LOC: INF 09:28
PROVIDERS: Visit Provider Internal Medicine Medical Oncology
DX: Z51.11 Encounter for antineoplastic chemotherapy (principal); C34.90 Malignant neoplasm of unspecified part of unspecified bronchus or lung
CPT/HCPCS: 96413; 96415; J1642; J9181; Q0166

== ENCOUNTER 2021-04-05 08:49 | Outpatient (CLI) | payer MEDICARE, SELFPAY ==
[2021-04-05 09:00] VITALS: BP 163/88; PULSE 66; RESP 18; TEMP 36.6; O2SAT 98
[2021-04-05 09:45] VITALS: BP 149/77; PULSE 71; RESP 18; O2SAT 98
[2021-04-05 10:15] VITALS: BP 156/86; PULSE 71; RESP 18; O2SAT 97
[2021-04-05 10:45] VITALS: BP 139/78; PULSE 69; RESP 18; O2SAT 98
[2021-04-05 11:15] VITALS: BP 145/78; PULSE 68; RESP 18; O2SAT 98
== END 2021-04-05 11:30 | disposition home or self-care (01) ==
LOC: INF 08:50
PROVIDERS: Visit Provider Internal Medicine Medical Oncology
DX: Z51.11 Encounter for antineoplastic chemotherapy (principal); C34.90 Malignant neoplasm of unspecified part of unspecified bronchus or lung
CPT/HCPCS: 96413; 96415; J1642; J9181; Q0166

== ENCOUNTER → 2021-04-21 12:35 | Outpatient (CLI) | payer MEDICARE, SELFPAY ==
[2021-04-21 13:07] LABS: Basophils % 0.5 % (0.1-2.0); Eosinophils % 1.5 % (0.1-12.0); Hematocrit 26.7 % (37.0-47.0); Hemoglobin 9.4 g/dL (12.2-16.2); Lymphocytes # 1.3 K/mm3 (0.7-4.5); Lymphocytes % 44.1 % (10-50); Mean Corpuscular HGB Conc 35.1 g/dL (31.8-35.4); Mean Corpuscular Volume 88.4 fl (81-99); Monocytes # 0.4 K/mm3 (0.1-1.0); Monocytes % 14.6 % (1.7-9.3); Neutrophils # 1.2 K/mm3 (1.8-7.8); Neutrophils % 39.3 % (37.0-80.0); Platelet Count 414 K/mm3 (142-424); Red Blood Count 3.02 M/mm3 (4.20-5.40); Red Cell Distribution Width 19.1 % (11.5-17.5)
[2021-04-21 15:00] LABS: Chloride 102 mmol/L (98-107); Potassium 5.1 mmoL/L (3.5-5.1); Sodium 133 mmol/L (136-145)
[2021-04-21 15:03] LABS: Alanine Aminotransferase 10 U/L (12-78); Albumin Level 3.9 g/dl (3.5-5.0); Albumin/Globulin Ratio 1.6 (1.1-1.8); Alkaline Phosphatase 127 U/L (38-126); Anion Gap 12.1 mEq/L (5-15); Aspartate Amino Transferase 25 U/L (14-36); Bilirubin,Total 0.3 mg/dl (0.2-1.3); Blood Urea Nitrogen 5 mg/dl (7-17); Calcium 8.8 mg/dl (8.4-10.2); Carbon Dioxide 24 mmol/L (22.0-30.0); Estimated Glomerular Filt Rate 102 ml/min (>60); GFR (African American) 124 ML/MIN (>60); Globulin 2.5 g/dL (1.3-3.2); Glucose 99 mg/dl (74-100); Total Protein,Serum 6.4 g/dl (6.3-8.2)
== END ==
PROVIDERS: Visit Provider Internal Medicine Medical Oncology
DX: R06.02 Shortness of breath (principal); C34.90 Malignant neoplasm of unspecified part of unspecified bronchus or lung
CPT/HCPCS: 80053; 85025

== ENCOUNTER → 2021-04-26 08:09 | Outpatient (CLI) | payer MEDICARE, SELFPAY ==
--- NOTE | 2021-04-26 08:12 | CT_ITS ---
PROCEDURE: CT ABDOMEN PELVIS W CON CLINICAL INDICATION: LUNG CANCER Lung cancer follow-up COMPARISON: CT CT ABDOMEN PELVIS W CON from 11/02/2020 TECHNIQUE: IV Contrast: 75ML Isovue 370 Oral Contrast None Axial images obtained with sagittal and coronal reformats. All CT scans at the facility use one or more dose reduction, viz: automated exposure control, ma/kV adjustment per patient size (including targeted exams where dose is matched to indication, i.e. head), or iterative reconstruction technique. FINDINGS: LOWER THORAX: Please see chest CT report of the same day ABDOMEN & PELVIS: The liver, spleen, adrenal glands, pancreas, and kidneys have an unremarkable appearance. No radiopaque gallstones. Previously noted soft tissue mass in the celiac region on the left has markedly decreased in size previously measuring 3.5 cm by 3 cm now measuring 1.4 by 0.9 cm. No new areas of adenopathy apparent. Bowel gas pattern is nonspecific. There are few small air-fluid levels within the small bowel which is nondistended. No evidence of appendicitis or diverticulitis. There are few colonic diverticula noted. There has been a prior hysterectomy. No adenopathy apparent. There postsurgical changes at L5-S1 and in the right sacroiliac region with artifact from multiple fixation devices. IMPRESSION: Improvement in the adenopathy in the celiac region. No new areas of adenopathy or mass is apparent. Dictated by: Khadar Mcnamara MD 04/27/2021 08:32 Khadar Mcnamara MD in [place] 04/27/2021 08:32
--- NOTE | 2021-04-26 08:12 | CT_ITS ---
PROCEDURE: CT CHEST W CON CLINCAL INDICATION: LUNG CANCER Lung cancer follow-up COMPARISON: CT CT CHEST WO CON from 06/11/[address] ANGIO CHEST from 11/02/2020 TECHNIQUE: IV Contrast: 75ml Isovue 370 Axial images obtained with sagittal and coronal reformats. All CT scans at the facility use one or more dose reduction, viz: automated exposure control, ma/kV adjustment per patient size (including targeted exams where dose is matched to indication, i.e. head), or iterative reconstruction technique. FINDINGS: HEART AND MEDIASTINAL STRUCTURES: Mediastinal adenopathy is present in the precarinal region, subcarinal area and AP window region. The adenopathy appears somewhat improved compared to the previous exam LUNGS AND PLEURAL SPACES: COPD changes. Pulmonary fibrotic changes with interstitial thickening noted in the lower lobes. Pleural based density previously noted in the left lower lobe has improved. BONY STRUCTURES: Wedge compression changes once again noted at T5. Old right-sided rib fractures. UPPER ABDOMEN: See abdomen report ADDITIONAL FINDINGS: MediPort catheter present from left subclavian approach. Small nodes are present in the axilla IMPRESSION: Overall improvement in the mediastinal adenopathy and left lower lobe mass.. There remains enlarged mediastinal lymph nodes and small residual parenchymal opacity with minimal cystic change in the left lower lobe posteriorly. Pulmonary fibrosis Dictated by: Khadar Mcnamara MD 04/27/2021 08:25 Khadar Mcnamara MD in [place] 04/27/2021 08:25
== END ==
PROVIDERS: PCP Nurse Practitioner Family; Visit Provider Internal Medicine Medical Oncology
DX: C34.92 Malignant neoplasm of unspecified part of left bronchus or lung (principal)
CPT/HCPCS: 71260; 74177; Q9967

== ENCOUNTER 2021-05-15 08:44 | Outpatient (CLI) | payer MEDICARE, SELFPAY ==
[2021-05-15] VITALS (14 sets, daily range): BP systolic 101–146; BP diastolic 48–74; PULSE 68–78; RESP 20; TEMP 36.9; O2SAT 95; BMI 23.1
[2021-05-15 09:19] LABS: Basophils # 0.1 K/mm3 (0-0.2); Basophils % 0.8 % (0.1-2.0); Eosinophils # 0.2 K/mm3 (0.0-0.4); Eosinophils % 3.3 % (0.1-12.0); Hematocrit 35.6 % (37.0-47.0); Hemoglobin 11.8 g/dL (12.2-16.2); Lymphocytes # 1.4 K/mm3 (0.7-4.5); Lymphocytes % 21.9 % (10-50); Mean Corpuscular HGB Conc 33.3 g/dL (31.8-35.4); Mean Corpuscular Volume 99.1 fl (81-99); Mean Platelet Volume 8.6 fl (7.4-10.4); Monocytes # 0.3 K/mm3 (0.1-1.0); Monocytes % 4.7 % (1.7-9.3); Neutrophils # 4.3 K/mm3 (1.8-7.8); Neutrophils % 69.2 % (37.0-80.0); Platelet Count 186 K/mm3 (142-424); Red Blood Count 3.59 M/mm3 (4.20-5.40); Red Cell Distribution Width 17.4 % (11.5-17.5); White Blood Count 6.2 K/mm3 (4.8-10.8)
[2021-05-15 09:26] LABS: Chloride 104 mmol/L (98-107); Potassium 4.3 mmoL/L (3.5-5.1); Sodium 137 mmol/L (136-145)
[2021-05-15 09:29] LABS: Alanine Aminotransferase 14 U/L (12-78); Albumin Level 4.1 g/dl (3.5-5.0); Albumin/Globulin Ratio 1.3 (1.1-1.8); Alkaline Phosphatase 106 U/L (38-126); Anion Gap 13.3 mEq/L (5-15); Aspartate Amino Transferase 26 U/L (14-36); Bilirubin,Total 0.5 mg/dl (0.2-1.3); Blood Urea Nitrogen 10 mg/dl (7-17); Carbon Dioxide 24 mmol/L (22.0-30.0); Creatinine Clearance Estimated 100 mL/min (50-200); Estimated Glomerular Filt Rate 102 ml/min (>60); GFR (African American) 124 ML/MIN (>60); Globulin 3.1 g/dL (1.3-3.2); Total Protein,Serum 7.2 g/dl (6.3-8.2)
[2021-05-15 09:30] LABS: Calcium 9.1 mg/dl (8.4-10.2); Glucose 116 mg/dl (74-100)
[2021-05-15 11:52] LABS: Thyroid Stimulating Hormone 0.93 uIU/mL (0.465-4.68)
[2021-05-16 15:28] LABS: Adrenocorticotropic Hormone 53.9 pg/mL (7.2-63.3)
== END 2021-05-15 14:10 | disposition home or self-care (01) ==
LOC: INF 08:45
PROVIDERS: PCP Nurse Practitioner Family; Visit Provider Internal Medicine Hematology & Oncology
DX: C34.90 Malignant neoplasm of unspecified part of unspecified bronchus or lung (principal); Z79.899 Other long term (current) drug therapy
CPT/HCPCS: 80053; 82024; 82533; 84443; 85025; 96413; 96415; 96417; J1642; J2469; J9022; J9045; J9181; Q0166

== ENCOUNTER 2021-05-16 07:56 | Outpatient (CLI) | payer MEDICARE, SELFPAY ==
[2021-05-16] VITALS (10 sets, daily range): BP systolic 132–166; BP diastolic 41–92; PULSE 66–76; RESP 17; TEMP 36.5–36.6; O2SAT 98
== END 2021-05-16 10:38 | disposition home or self-care (01) ==
LOC: INF 07:57
PROVIDERS: PCP Nurse Practitioner Family; Visit Provider Internal Medicine Medical Oncology
DX: Z51.11 Encounter for antineoplastic chemotherapy (principal); C34.92 Malignant neoplasm of unspecified part of left bronchus or lung
CPT/HCPCS: 96413; 96415; J1642; J9181; Q0166

== ENCOUNTER 2021-05-17 08:00 | Outpatient (CLI) | payer MEDICARE, SELFPAY ==
[2021-05-17] VITALS (7 sets, daily range): BP systolic 98–134; BP diastolic 63–82; PULSE 59–63; RESP 18; TEMP 36.1; O2SAT 98
== END 2021-05-17 10:35 | disposition home or self-care (01) ==
LOC: INF 08:02
PROVIDERS: PCP Nurse Practitioner Family; Visit Provider Internal Medicine Medical Oncology
DX: Z51.11 Encounter for antineoplastic chemotherapy (principal); C34.90 Malignant neoplasm of unspecified part of unspecified bronchus or lung
CPT/HCPCS: 96413; 96415; J1642; J9181; Q0166

== ENCOUNTER → 2021-06-07 08:01 | Outpatient (CLI) | payer MEDICARE, SELFPAY ==
[2021-06-07] VITALS (10 sets, daily range): BP systolic 113–166; BP diastolic 46–75; PULSE 66–80; RESP 18; TEMP 36.1; O2SAT 99; BMI 22.8
[2021-06-07 08:27] LABS: Basophils % 0.8 % (0.1-2.0); Eosinophils % 0.8 % (0.1-12.0); Hematocrit 33.7 % (37.0-47.0); Hemoglobin 10.9 g/dL (12.2-16.2); Lymphocytes # 1.4 K/mm3 (0.7-4.5); Lymphocytes % 36.2 % (10-50); Mean Corpuscular HGB Conc 32.4 g/dL (31.8-35.4); Mean Corpuscular Hemoglobin 33.2 pg (27.0-31.2); Mean Corpuscular Volume 102.5 fl (81-99); Mean Platelet Volume 9.7 fl (7.4-10.4); Monocytes # 0.3 K/mm3 (0.1-1.0); Monocytes % 7.3 % (1.7-9.3); Neutrophils # 2.1 K/mm3 (1.8-7.8); Neutrophils % 54.9 % (37.0-80.0); Platelet Count 421 K/mm3 (142-424); Red Blood Count 3.29 M/mm3 (4.20-5.40); Red Cell Distribution Width 17.7 % (11.5-17.5); White Blood Count 3.8 K/mm3 (4.8-10.8)
[2021-06-07 08:36] LABS: Alanine Aminotransferase 18 U/L (12-78); Albumin Level 4.1 g/dl (3.5-5.0); Albumin/Globulin Ratio 1.4 (1.1-1.8); Alkaline Phosphatase 118 U/L (38-126); Aspartate Amino Transferase 30 U/L (14-36); Bilirubin,Total 0.3 mg/dl (0.2-1.3); Blood Urea Nitrogen 5 mg/dl (7-17); Calcium 9.1 mg/dl (8.4-10.2); Carbon Dioxide 23 mmol/L (22.0-30.0); Chloride 104 mmol/L (98-107); Creatinine Clearance Estimated 99 mL/min (50-200); Estimated Glomerular Filt Rate 102 ml/min (>60); GFR (African American) 124 ML/MIN (>60); Glucose 146 mg/dl (74-100); Sodium 137 mmol/L (136-145); Total Protein,Serum 7.1 g/dl (6.3-8.2)
== END ==
PROVIDERS: PCP Nurse Practitioner Family; Visit Provider Internal Medicine Medical Oncology
DX: Z51.11 Encounter for antineoplastic chemotherapy (principal); C34.90 Malignant neoplasm of unspecified part of unspecified bronchus or lung
CPT/HCPCS: 80053; 85025; 96413; 96415; 96417; J1642; J2469; J9022; J9045; J9181; Q0166

== ENCOUNTER 2021-06-08 08:13 | Outpatient (CLI) | payer MEDICARE, SELFPAY ==
[2021-06-08] VITALS (9 sets, daily range): BP systolic 118–147; BP diastolic 59–78; PULSE 75–84; RESP 18; TEMP 36.4; O2SAT 98
== END 2021-06-08 11:10 | disposition home or self-care (01) ==
LOC: INF 08:14
PROVIDERS: PCP Nurse Practitioner Family; Visit Provider Internal Medicine Medical Oncology
DX: Z51.11 Encounter for antineoplastic chemotherapy (principal); C34.90 Malignant neoplasm of unspecified part of unspecified bronchus or lung
CPT/HCPCS: 96413; 96415; J1642; J9181; Q0166

== ENCOUNTER 2021-06-09 09:59 | Outpatient (CLI) | payer MEDICARE, SELFPAY ==
[2021-06-09] VITALS (7 sets, daily range): BP systolic 111–169; BP diastolic 60–98; PULSE 64–81; RESP 18; O2SAT 100
== END 2021-06-09 12:30 | disposition home or self-care (01) ==
LOC: INF 10:00
PROVIDERS: PCP Nurse Practitioner Family; Visit Provider Internal Medicine Medical Oncology
DX: Z51.11 Encounter for antineoplastic chemotherapy (principal); C34.90 Malignant neoplasm of unspecified part of unspecified bronchus or lung
CPT/HCPCS: 96413; 96415; J1642; J9181; Q0166

== ENCOUNTER → 2021-06-16 08:53 | Outpatient (CLI) | payer MEDICARE, SELFPAY ==
--- NOTE | 2021-06-16 08:59 | CT_ITS ---
PROCEDURE: CT ABDOMEN PELVIS W CON CLINICAL INDICATION: LUNG CANCER Follow-up lung cancer COMPARISON: CT CT ABDOMEN PELVIS W CON from 04/26/2021 TECHNIQUE: IV Contrast: 75ML Isovue 370 Oral Contrast 450ml Redicat Axial images obtained with sagittal and coronal reformats. All CT scans at the facility use one or more dose reduction, viz: automated exposure control, ma/kV adjustment per patient size (including targeted exams where dose is matched to indication, i.e. head), or iterative reconstruction technique. FINDINGS: LOWER THORAX: See chest CT report performed on the same day ABDOMEN & PELVIS: Liver, gallbladder, spleen, adrenal glands, pancreas, and kidneys have an unremarkable appearance. There has further decrease in the enlarged nodes in the left celiac region. No new areas of adenopathy apparent. No intestinal obstruction or free air. No evidence of appendicitis or diverticulitis. Post hysterectomy. Artifact is present from prior posterior fusion at L5 and S1 and prior right sacroiliac fusion. No bony destructive process. IMPRESSION: Further decrease in size of the celiac lymph nodes. Otherwise negative. Dictated by: Khadar Mcnamara MD 06/17/2021 09:44 Khadar Mcnamara MD in [place] 06/17/2021 09:44
--- NOTE | 2021-06-16 08:59 | CT_ITS ---
PROCEDURE: CT CHEST W CON CLINCAL INDICATION: LUNG CANCER COMPARISON: CT CT ANGIO CHEST from 11/02/[address] CHEST W CON from 04/26/2021 TECHNIQUE: IV Contrast: 75ml Isovue 370 Axial images obtained with sagittal and coronal reformats. All CT scans at the facility use one or more dose reduction, viz: automated exposure control, ma/kV adjustment per patient size (including targeted exams where dose is matched to indication, i.e. head), or iterative reconstruction technique. FINDINGS: HEART AND MEDIASTINAL STRUCTURES: Enlarged mediastinal lymph nodes are once again noted which are slightly smaller compared to the previous exam. LUNGS AND PLEURAL SPACES: COPD changes. There is prominence of the interstitium in the lung bases. There is a small pleural based density in the left upper lobe posteriorly at 7 x 4 mm not significantly changed. Further decrease in size in the pleural based lesion in the left lower lobe with minimal cystic changes. There is some mint minimal residual density in this area. No new nodules evident. No pleural effusion. BONY STRUCTURES: There are old right-sided rib fractures. Chronic compression deformity once again noted at T5 with kyphosis. No bony destructive process apparent. UPPER ABDOMEN: See abdomen report ADDITIONAL FINDINGS: MediPort catheter is present from left subclavian approach. IMPRESSION: Residual mediastinal adenopathy which appears somewhat less bulky compared to the previous exam Further decrease in size the pleural based lesion in the left lower lobe with small residual cystic component. Dictated by: Khadar Mcnamara MD 06/17/2021 09:35 Khadar Mcnamara MD in [place] 06/17/2021 09:35
== END ==
PROVIDERS: PCP Nurse Practitioner Family; Visit Provider Internal Medicine Medical Oncology
DX: C34.90 Malignant neoplasm of unspecified part of unspecified bronchus or lung (principal)
CPT/HCPCS: 71260; 74177; J1642; Q9967

== ENCOUNTER 2021-06-26 08:46 | Outpatient (CLI) | payer MEDICARE, SELFPAY ==
[2021-06-26 08:53] VITALS: BMI 24.2
[2021-06-26 09:36] LABS: Basophils % 0.3 % (0.1-2.0); Eosinophils % 1.5 % (0.1-12.0); Hematocrit 21.1 % (37.0-47.0); Hemoglobin 7.6 g/dL (12.2-16.2); Lymphocytes % 60.2 % (10-50); Mean Corpuscular HGB Conc 35.8 g/dL (31.8-35.4); Mean Corpuscular Hemoglobin 34.6 pg (27.0-31.2); Mean Corpuscular Volume 96.5 fl (81-99); Monocytes # 0.2 K/mm3 (0.1-1.0); Monocytes % 10.5 % (1.7-9.3); Neutrophils # 0.5 K/mm3 (1.8-7.8); Neutrophils % 27.5 % (37.0-80.0); Platelet Count 233 K/mm3 (142-424); Red Blood Count 2.19 M/mm3 (4.20-5.40); White Blood Count 1.7 K/mm3 (4.8-10.8)
[2021-06-26 09:41] LABS: Alanine Aminotransferase 8 U/L (12-78); Albumin Level 3.7 g/dl (3.5-5.0); Albumin/Globulin Ratio 1.3 (1.1-1.8); Alkaline Phosphatase 132 U/L (38-126); Anion Gap 9.8 mEq/L (5-15); Aspartate Amino Transferase 24 U/L (14-36); Bilirubin,Total 0.3 mg/dl (0.2-1.3); Blood Urea Nitrogen 7 mg/dl (7-17); Calcium 8.7 mg/dl (8.4-10.2); Carbon Dioxide 24 mmol/L (22.0-30.0); Chloride 105 mmol/L (98-107); Creatinine Clearance Estimated 105 mL/min (50-200); Estimated Glomerular Filt Rate 102 ml/min (>60); GFR (African American) 124 ML/MIN (>60); Globulin 2.9 g/dL (1.3-3.2); Glucose 94 mg/dl (74-100); Potassium 3.8 mmoL/L (3.5-5.1); Sodium 135 mmol/L (136-145); Total Protein,Serum 6.6 g/dl (6.3-8.2)
[2021-06-26 09:49] LABS: MANUAL DIFFERENTIAL MANUAL DIFFERENTIAL (MANUAL DIFF)
[2021-06-26 10:45] LABS: Hypochromasia 2+; Lymphocytes % 46 % (10-50); Macrocytosis 1+; Monocytes % 12 % (2-9); Neutrophils % 39 % (42-76); Nucleated Red Blood Cells 1; Platelet Estimate Normal; Total Cells Counted 100
[2021-06-26 10:53] VITALS: BP 144/63; PULSE 84; RESP 18; TEMP 36.6; O2SAT 100
[2021-06-26 11:08] VITALS: BP 150/72; PULSE 80; RESP 18
[2021-06-26 11:23] VITALS: BP 122/69; PULSE 79; RESP 18
[2021-06-26 11:38] VITALS: BP 114/71; PULSE 82; RESP 16
[2021-06-26 11:53] VITALS: BP 120/69; PULSE 83; RESP 16
[2021-06-27 12:57] LABS: Adrenocorticotropic Hormone 60.9 pg/mL (7.2-63.3)
== END 2021-06-26 12:10 | disposition home or self-care (01) ==
LOC: INF 08:47
PROVIDERS: PCP Nurse Practitioner Family; Visit Provider Internal Medicine Medical Oncology
DX: Z51.11 Encounter for antineoplastic chemotherapy (principal); C34.90 Malignant neoplasm of unspecified part of unspecified bronchus or lung; Z79.899 Other long term (current) drug therapy
CPT/HCPCS: 80053; 82024; 82533; 84443; 85007; 85025; 96413; J1642; J9022

== ENCOUNTER 2021-07-06 09:44 | Outpatient (CLI) | payer MEDICARE, SELFPAY ==
[2021-07-06 10:19] VITALS: BMI 24.1
[2021-07-06 10:58] LABS: Blood Urea Nitrogen 5 mg/dl (7-17); Creatinine Clearance Estimated 90 mL/min (50-200); Estimated Glomerular Filt Rate 86 ml/min (>60); GFR (African American) 104 ML/MIN (>60)
== END 2021-07-06 10:40 | disposition home or self-care (01) ==
LOC: INF 09:49
PROVIDERS: PCP Nurse Practitioner Family
DX: C34.32 Malignant neoplasm of lower lobe, left bronchus or lung (principal)
CPT/HCPCS: 82565; 84520; J1642

== ENCOUNTER 2021-07-06 10:38 | Emergency (ER) | payer MEDICARE, SELFPAY ==
[2021-07-06 11:09] VITALS: BP 140/70; PULSE 87; RESP 18; TEMP 36.8; O2SAT 99; BMI 26.5
--- NOTE | 2021-07-06 11:37 | HMH.EDUTC ---
[facility] Disposition Clinical Impression: Upper respiratory infection, viral Disposition: Home, Self-Care Condition on Discharge: Good Instructions: DI for Viral Upper Respiratory Infection -- Adult Additional Instructions: No sign of a bacterial infection. Likely viral. Viruses can take 7-14 days to run their course. Nasal saline and bulb syringe or nose Berkley to remove nasal drainage to help with nasal congestion. Hard to eat, drink, sleep with nasal congestion so important to keep this cleaned out. Monitor temp. Tylenol or Motrin as needed for pain or fever Encourage fluids, water, Gatorade, Powerade, Pedialyte if /toddler/child Warm salt water gargles Warm fluids Sore throat lozenges Sleep elevated Humidifier/vaporizer Follow-up immediately for new or worsening symptoms or no noticeable improvement over the next 48-72 hours. Prescriptions: Fluticasone Propionate [Flonase 50mcg nasal spray 16gm] 1 spr NS DAILY 14 Days #9.9 ml Transmission Status: Pending to [facility] predniSONE [Prednisone 20mg Tab] 20 mg PO BID #10 tab Transmission Status: Pending to [facility] Referrals: Arianna Wills APRN [Primary Care Provider] - Time of Disposition: 12:30 Medical Decision Making - Ba Inquiry Pt receiving controlled substance: No Vital Signs: 07/06/21 11:09 Temperature 98.3 F Temperature Source Oral Pulse Rate [Right Radial] 87 Respiratory Rate 18 Blood Pressure [Right Arm] 140/70 Blood Pressure Mean [Right Arm] 93 Blood Pressure Source [Right Arm] Automatic Cuff Blood Pressure Position [Right Arm] Sitting 02 Sat by Pulse Oximetry 99 Oxygen Delivery Method Room Air - Lab Data Lab Results 07/06/21 11:51: SARS-CoV-2 (PCR) Not detected, Influenza A Untype (PCR) Not detected, Influenza Type B (PCR) Not detected [facility] [place] HPI - General Chief complaint: Urgent Treatment Center Stated complaint: sinus drainage Time Seen by Provider: 07/06/21 11:37 Mode of Arrival: Ambulatory Source of Information: Patient Limitations: No Limitations Description of Symptoms (Recalled from Triage Doc. by RN): c/o sore throat, sinus drainage, ear pain HEENT Symptoms (Recalled from RN notes): Yes (sore throat, ear pain, sinus drainage) Resp Symptoms (Recalled from RN notes): No Skin Symptoms (Recalled from RN notes): No MS Symptoms (Recalled from RN notes): No Functional Status (Recalled from RN notes): n/a - History of Present Illness Provider Complaint: 60 yr old female presents for clear nasal drainage,congestion and marcie ear pain - Related Data Home Medications Medication Instructions Recorded Confirmed aspirin 81 mg tablet,delayed 81 mg PO DAILY 09/25/18 06/26/21 release Levothyroxine Sodium [Synthroid 75 mcg PO DAILY 03/07/21 06/26/21 75mcg (0.075mg) tablet] Metoprolol Succinate [Metoprolol 50 mg PO DAILY 03/07/21 06/26/21 Succinate 50mg Tablet*] Sertraline HCl [Zoloft] 50 mg PO DAILY 03/07/21 06/26/21 Previous Rx's Medication Instructions Recorded atorvastatin 80 mg tablet 80 mg PO DAILY #90 tab 06/30/20 evolocumab 140 mg/mL subcutaneous See Rx Instructions .ROUTE 06/26/21 pen injector .COMPLEX #2 milliliter Fluticasone Propionate [Flonase 1 spr NS DAILY 14 Days #9.9 ml 07/06/21 50mcg nasal spray 16gm] predniSONE [Prednisone 20mg 20 mg PO BID #10 tab 07/06/21 Tab] Allergies Allergy/AdvReac Type Severity Reaction Status Date / Time No Known Allergies Allergy Verified 06/22/21 09:45 - Worker's Comp Is this a Worker's Comp case?: No [facility] History - Hepatitis A Screen Drug use history?: No High risk sexual behaviors?: No History of sexually transmitted infection?: No Currently employed?: No Childcare worker?: No Do you have indoor plumbing?: Yes Do you have electricity?: Yes Attestation statement:: This patient has been screened for Hepatitis A risk factors. I have reviewed the patient's past medical history: Yes
[2021-07-06 11:58] LABS: Coronavirus 19, PCR Not Detected (NotDetected); Influenza A, PCR Not Detected (NotDetected); Influenza B, PCR Not Detected (NotDetected)
[2021-07-06 12:58] VITALS: BP 140/70; PULSE 87; RESP 18; TEMP 36.8; O2SAT 99
== END 2021-07-06 13:00 | disposition home or self-care (01) ==
PROVIDERS: Emergency Provider Nurse Practitioner Family; PCP Nurse Practitioner Family
DX: J06.9 Acute upper respiratory infection, unspecified (principal); Z20.822 Contact with and (suspected) exposure to COVID-19; J44.9 Chronic obstructive pulmonary disease, unspecified; K21.9 Gastro-esophageal reflux disease without esophagitis; I10 Essential (primary) hypertension; E03.9 Hypothyroidism, unspecified
CPT/HCPCS: 82565; 84520; 99202; C9803; G0463; J1642; U0003; U0005

== ENCOUNTER 2021-08-04 08:49 | Outpatient (CLI) | payer MEDICARE, SELFPAY ==
[2021-08-04 09:14] VITALS: BMI 24.1
[2021-08-04 09:26] LABS: Basophils % 0.7 % (0.1-2.0); Eosinophils # 0.2 K/mm3 (0.0-0.4); Eosinophils % 3.5 % (0.1-12.0); Hematocrit 30.9 % (37.0-47.0); Hemoglobin 10.9 g/dL (12.2-16.2); Lymphocytes # 0.9 K/mm3 (0.7-4.5); Lymphocytes % 19.1 % (10-50); Mean Corpuscular HGB Conc 35.3 g/dL (31.8-35.4); Mean Corpuscular Hemoglobin 33.6 pg (27.0-31.2); Mean Corpuscular Volume 95.2 fl (81-99); Mean Platelet Volume 8.4 fl (7.4-10.4); Monocytes # 0.4 K/mm3 (0.1-1.0); Monocytes % 7.6 % (1.7-9.3); Neutrophils # 3.2 K/mm3 (1.8-7.8); Neutrophils % 69.1 % (37.0-80.0); Platelet Count 202 K/mm3 (142-424); Red Blood Count 3.25 M/mm3 (4.20-5.40); Red Cell Distribution Width 13.7 % (11.5-17.5); White Blood Count 4.6 K/mm3 (4.8-10.8)
[2021-08-04 09:29] LABS: Alanine Aminotransferase 14 U/L (12-78); Albumin Level 4.3 g/dl (3.5-5.0); Albumin/Globulin Ratio 1.7 (1.1-1.8); Alkaline Phosphatase 84 U/L (38-126); Aspartate Amino Transferase 33 U/L (14-36); Bilirubin,Total 0.5 mg/dl (0.2-1.3); Blood Urea Nitrogen 3 mg/dl (7-17); Calcium 9.3 mg/dl (8.4-10.2); Carbon Dioxide 29 mmol/L (22.0-30.0); Chloride 93 mmol/L (98-107); Creatinine Clearance Estimated 105 mL/min (50-200); Estimated Glomerular Filt Rate 102 ml/min (>60); GFR (African American) 124 ML/MIN (>60); Globulin 2.6 g/dL (1.3-3.2); Glucose 100 mg/dl (74-100); Sodium 129 mmol/L (136-145); Total Protein,Serum 6.9 g/dl (6.3-8.2)
[2021-08-04 10:32] VITALS: BP 151/74; PULSE 71; RESP 17; TEMP 37.2; O2SAT 98
[2021-08-04 10:45] VITALS: BP 142/89; PULSE 68
[2021-08-04 11:00] VITALS: BP 137/81; PULSE 76
[2021-08-04 11:15] VITALS: BP 137/76; PULSE 81
[2021-08-04 11:30] VITALS: BP 148/76; PULSE 83
[2021-08-04 11:46] LABS: Thyroid Stimulating Hormone 0.34 uIU/mL (0.465-4.68)
[2021-08-04 12:00] VITALS: BP 137/79; PULSE 76; RESP 17; O2SAT 98
[2021-08-05 13:29] LABS: Adrenocorticotropic Hormone 3.2 pg/mL (7.2-63.3)
== END 2021-08-04 12:05 | disposition home or self-care (01) ==
LOC: INF 08:50
PROVIDERS: PCP Nurse Practitioner Family; Visit Provider Internal Medicine Medical Oncology
DX: Z51.11 Encounter for antineoplastic chemotherapy (principal); C34.90 Malignant neoplasm of unspecified part of unspecified bronchus or lung; Z79.899 Other long term (current) drug therapy
CPT/HCPCS: 80053; 82024; 82533; 84443; 85025; 96413; J1642; J9022

== ENCOUNTER 2021-08-24 08:21 | Outpatient (CLI) | payer MEDICARE, SELFPAY ==
[2021-08-24 08:28] VITALS: BMI 23.2
[2021-08-24 08:52] LABS: Basophils % 0.8 % (0.1-2.0); Eosinophils # 0.1 K/mm3 (0.0-0.4); Hematocrit 33.6 % (37.0-47.0); Hemoglobin 11.5 g/dL (12.2-16.2); Lymphocytes # 0.8 K/mm3 (0.7-4.5); Mean Corpuscular HGB Conc 34.2 g/dL (31.8-35.4); Mean Corpuscular Hemoglobin 32.1 pg (27.0-31.2); Mean Corpuscular Volume 93.9 fl (81-99); Mean Platelet Volume 8.4 fl (7.4-10.4); Monocytes # 0.3 K/mm3 (0.1-1.0); Monocytes % 7.2 % (1.7-9.3); Neutrophils # 2.6 K/mm3 (1.8-7.8); Platelet Count 217 K/mm3 (142-424); Red Blood Count 3.57 M/mm3 (4.20-5.40); Red Cell Distribution Width 13.8 % (11.5-17.5); White Blood Count 3.9 K/mm3 (4.8-10.8)
[2021-08-24 08:57] LABS: Alanine Aminotransferase 16 U/L (12-78); Albumin Level 4.2 g/dl (3.5-5.0); Albumin/Globulin Ratio 1.6 (1.1-1.8); Alkaline Phosphatase 90 U/L (38-126); Anion Gap 7.9 mEq/L (5-15); Aspartate Amino Transferase 35 U/L (14-36); Bilirubin,Total 0.4 mg/dl (0.2-1.3); Blood Urea Nitrogen 3 mg/dl (7-17); Calcium 9.4 mg/dl (8.4-10.2); Carbon Dioxide 27 mmol/L (22.0-30.0); Chloride 102 mmol/L (98-107); Creatinine Clearance Estimated 110 mL/min (50-200); Estimated Glomerular Filt Rate 126 ml/min (>60); GFR (African American) 153 ML/MIN (>60); Globulin 2.7 g/dL (1.3-3.2); Glucose 85 mg/dl (74-100); Potassium 3.9 mmoL/L (3.5-5.1); Sodium 133 mmol/L (136-145); Total Protein,Serum 6.9 g/dl (6.3-8.2)
[2021-08-24 10:50] VITALS: BP 112/69; PULSE 72; RESP 19; TEMP 36; O2SAT 100
[2021-08-24 12:10] VITALS: BP 120/71; PULSE 83; RESP 18
[2021-08-25 13:18] LABS: Adrenocorticotropic Hormone 39.3 pg/mL (7.2-63.3)
== END 2021-08-24 12:10 | disposition home or self-care (01) ==
LOC: INF 08:23
PROVIDERS: PCP Nurse Practitioner Family; Visit Provider Internal Medicine Medical Oncology
DX: Z51.11 Encounter for antineoplastic chemotherapy (principal); C34.90 Malignant neoplasm of unspecified part of unspecified bronchus or lung; Z79.899 Other long term (current) drug therapy
CPT/HCPCS: 80053; 82024; 82533; 84443; 85025; 96413; J1642; J9022

== ENCOUNTER 2021-09-14 09:31 | Outpatient (CLI) | payer MEDICARE, SELFPAY ==
[2021-09-14 09:40] VITALS: BMI 24.1
[2021-09-14 10:05] LABS: Basophils # 0.1 K/mm3 (0-0.2); Basophils % 1.2 % (0.1-2.0); Eosinophils # 0.1 K/mm3 (0.0-0.4); Eosinophils % 2.6 % (0.1-12.0); Hematocrit 41.3 % (37.0-47.0); Lymphocytes # 1.2 K/mm3 (0.7-4.5); Lymphocytes % 27.7 % (10-50); Mean Corpuscular HGB Conc 33.9 g/dL (31.8-35.4); Mean Corpuscular Hemoglobin 33.1 pg (27.0-31.2); Mean Corpuscular Volume 97.6 fl (81-99); Mean Platelet Volume 7.9 fl (7.4-10.4); Monocytes # 0.3 K/mm3 (0.1-1.0); Neutrophils # 2.7 K/mm3 (1.8-7.8); Neutrophils % 62.5 % (37.0-80.0); Platelet Count 199 K/mm3 (142-424); Red Blood Count 4.23 M/mm3 (4.20-5.40); White Blood Count 4.3 K/mm3 (4.8-10.8)
[2021-09-14 10:09] LABS: Chloride 97 mmol/L (98-107); Sodium 131 mmol/L (136-145)
[2021-09-14 10:10] LABS: Potassium 4.2 mmoL/L (3.5-5.1)
[2021-09-14 10:12] LABS: Alanine Aminotransferase 11 U/L (12-78); Albumin Level 4.3 g/dl (3.5-5.0); Albumin/Globulin Ratio 1.6 (1.1-1.8); Alkaline Phosphatase 98 U/L (38-126); Anion Gap 12.2 mEq/L (5-15); Aspartate Amino Transferase 31 U/L (14-36); Bilirubin,Total 0.3 mg/dl (0.2-1.3); Blood Urea Nitrogen 3 mg/dl (7-17); Carbon Dioxide 26 mmol/L (22.0-30.0); Creatinine Clearance Estimated 126 mL/min (50-200); Estimated Glomerular Filt Rate 126 ml/min (>60); GFR (African American) 153 ML/MIN (>60); Globulin 2.7 g/dL (1.3-3.2)
[2021-09-14 10:13] LABS: Calcium 9.3 mg/dl (8.4-10.2); Glucose 89 mg/dl (74-100)
[2021-09-14 10:34] VITALS: BP 124/80; PULSE 80; RESP 18; TEMP 36.4; O2SAT 99
[2021-09-14 11:04] VITALS: BP 116/62; PULSE 74; RESP 18; O2SAT 98
[2021-09-14 11:40] VITALS: BP 114/66; PULSE 79; RESP 18; O2SAT 98
[2021-09-15 12:20] LABS: Adrenocorticotropic Hormone 20.5 pg/mL (7.2-63.3)
== END 2021-09-14 11:45 | disposition home or self-care (01) ==
LOC: INF 09:32
PROVIDERS: PCP Nurse Practitioner Family; Visit Provider Internal Medicine Medical Oncology
DX: Z51.11 Encounter for antineoplastic chemotherapy (principal); C34.90 Malignant neoplasm of unspecified part of unspecified bronchus or lung; Z79.899 Other long term (current) drug therapy
CPT/HCPCS: 80053; 82024; 82533; 84443; 85025; 96413; J1642; J9022

== ENCOUNTER 2021-09-25 08:34 | Outpatient (CLI) | payer MEDICARE, SELFPAY ==
[2021-09-25 08:48] VITALS: BMI 21.8
--- NOTE | 2021-09-25 08:59 | CT_ITS ---
FINAL REPORT CLINICAL HISTORY: LUNG CA/lung cancer known// patient did chemo and radiation // has a port rated for 5 ml- outpatient infusion accessed port for contrast// she drank at home but was able to drink more when arrived and we gave isovue 370/75ml for scan COMPARISON: June 16, 2021 FINDINGS: Axial CT images of the chest were obtained with contrast. Coronal reformatted images were also obtained. This study was performed with techniques to keep radiation doses as low as reasonably achievable, (ALARA). Individualized dose reduction techniques using automated exposure control or adjustment of mA and/or KV according to the patient's size were employed. There is persistent mediastinal adenopathy. An AP window mass measures 2.4 cm and previously measured 2.4 cm. Other small mediastinal and hilar lymph nodes are visually stable. No axillary mass or adenopathy is identified. Lung window images demonstrate a stable 4 mm nodule in the posterior left upper lobe. No localized pulmonary inflammatory process is identified. There is moderate scarring. IMPRESSION: Persistent but stable mediastinal and hilar adenopathy. Stable 4 mm left upper lobe nodule. Reviewed, Interpreted and Dictated by Keyur Michel III, MD Transcribed by Graham Christianson Authenticated by Keyur Michel III, MD on 09/25/2021 01:24:30 PM [facility]
--- NOTE | 2021-09-25 08:59 | CT_ITS ---
FINAL REPORT CLINICAL HISTORY: LUNG CA//lung cancer known// patient did chemo and radiation // has a port rated for 5 ml- outpatient infusion accessed port for contrast// she drank at home but was able to drink more when arrived and we gave isovue 370/75ml for scan COMPARISON: June 16, 2021 FINDINGS: CT OF THE ABDOMEN AND PELVIS WITH CONTRAST Axial CT images of the abdomen and pelvis were obtained after the administration of oral and iv contrast. Coronal reformatted images were also obtained and reviewed.This study was performed with techniques to keep radiation doses as low as reasonably achievable (ALARA). Individualized dose reduction techniques using automated exposure control or adjustment of mA and/or kV according to the patient's size were employed. Abdomen: The heart is normal in size. The liver has an unremarkable appearance, without evidence of mass or biliary ductal dilatation. The gallbladder is present. The spleen is unremarkable. No adrenal mass is present. The pancreas has an unremarkable appearance. The kidneys are normal, without evidence of mass or hydronephrosis. The aorta is normal in caliber. There is new upper abdominal para-aortic adenopathy measuring up to 3.4 cm consistent with metastatic adenopathy. Pelvis: The appendix is normal. The urinary bladder is unremarkable. No inflammatory process is seen. There is no evidence of mass or adenopathy. There is no evidence of bowel obstruction. Postoperative changes seen in the lumbar spine and right SI joint. There has been hysterectomy. IMPRESSION: New upper abdominal para-aortic adenopathy consistent with metastatic adenopathy. Reviewed, Interpreted and Dictated by Keyur Michel III, MD Transcribed by Graham Christianson Authenticated by Keyur Michel III, MD on 09/25/2021 01:24:12 PM [facility]
[2021-09-25 09:11] LABS: Anion Gap 13.9 mEq/L (5-15); Blood Urea Nitrogen 3 mg/dl (7-17); Calcium 9.5 mg/dl (8.4-10.2); Carbon Dioxide 25 mmol/L (22.0-30.0); Chloride 96 mmol/L (98-107); Creatinine Clearance Estimated 114 mL/min (50-200); Estimated Glomerular Filt Rate 126 ml/min (>60); GFR (African American) 153 ML/MIN (>60); Glucose 100 mg/dl (74-100); Potassium 3.9 mmoL/L (3.5-5.1); Sodium 131 mmol/L (136-145)
== END 2021-09-25 09:45 | disposition home or self-care (01) ==
PROVIDERS: PCP Nurse Practitioner Family; Visit Provider Internal Medicine Medical Oncology
DX: C34.90 Malignant neoplasm of unspecified part of unspecified bronchus or lung (principal)
CPT/HCPCS: 71260; 74177; 80048; J1642; Q9967

== ENCOUNTER 2021-10-09 09:46 | Outpatient (CLI) | payer MEDICARE, SELFPAY ==
[2021-10-09 09:50] VITALS: BMI 23.9
[2021-10-09 10:20] LABS: Alanine Aminotransferase 17 U/L (12-78); Albumin Level 4.3 g/dl (3.5-5.0); Albumin/Globulin Ratio 1.5 (1.1-1.8); Alkaline Phosphatase 56 U/L (38-126); Anion Gap 13.8 mEq/L (5-15); Aspartate Amino Transferase 32 U/L (14-36); Bilirubin,Total 0.4 mg/dl (0.2-1.3); Blood Urea Nitrogen 5 mg/dl (7-17); Calcium 9.7 mg/dl (8.4-10.2); Carbon Dioxide 25 mmol/L (22.0-30.0); Chloride 93 mmol/L (98-107); Creatinine Clearance Estimated 95 mL/min (50-200); Estimated Glomerular Filt Rate 102 ml/min (>60); GFR (African American) 124 ML/MIN (>60); Globulin 2.8 g/dL (1.3-3.2); Glucose 121 mg/dl (74-100); Potassium 3.8 mmoL/L (3.5-5.1); Sodium 128 mmol/L (136-145); Total Protein,Serum 7.1 g/dl (6.3-8.2)
[2021-10-09 10:51] LABS: Thyroid Stimulating Hormone 0.03 uIU/mL (0.465-4.68)
[2021-10-09 11:14] LABS: Basophils # 0.1 K/mm3 (0-0.2); Basophils % 1.1 % (0.1-2.0); Eosinophils % 0.8 % (0.1-12.0); Hemoglobin 14.7 g/dL (12.2-16.2); Lymphocytes # 1.1 K/mm3 (0.7-4.5); Mean Corpuscular HGB Conc 31.9 g/dL (31.8-35.4); Mean Corpuscular Hemoglobin 31.2 pg (27.0-31.2); Mean Corpuscular Volume 97.8 fl (81-99); Mean Platelet Volume 7.7 fl (7.4-10.4); Monocytes # 0.4 K/mm3 (0.1-1.0); Monocytes % 7.1 % (1.7-9.3); Neutrophils # 3.6 K/mm3 (1.8-7.8); Neutrophils % 69.9 % (37.0-80.0); Platelet Count 199 K/mm3 (142-424); Red Blood Count 4.71 M/mm3 (4.20-5.40); White Blood Count 5.1 K/mm3 (4.8-10.8)
[2021-10-09 12:05] VITALS: BP 117/71; PULSE 84; RESP 18; TEMP 36.7; O2SAT 98
--- NOTE | 2021-10-09 12:07 | DIET.NUTRFU ---
RD consulted to see patient, she was here for chemo infusion. She has lost 16# or 12% in 6months d/t loss of smell and taste secondary to chemo tx. She claims food with flavor is too strong and then other foods smell bad. Reviewed her meal recall and she does well with eggs, toast with apple butter. Willing to try chicken salad, cottage cheese, egg salad. Encouraged 6 small meals, provided handout. She claims she has never been a big eater. Has been drinking up to 2 Boost daily, recommended increase if meal intake does not pickup. She also makes herself milkshakes occasionally and willing to try carnation instant breakfast. Spoke to nursing, they are trying to get megace covered to increase appetite. Provided contact information for further questions or concerns.
[2021-10-09 13:20] VITALS: BP 108/72; PULSE 64; RESP 18; O2SAT 98
[2021-10-10 13:26] LABS: Adrenocorticotropic Hormone 46.3 pg/mL (7.2-63.3)
== END 2021-10-09 13:20 | disposition home or self-care (01) ==
LOC: INF 09:47
PROVIDERS: PCP Nurse Practitioner Family; Visit Provider Internal Medicine Medical Oncology
DX: Z51.11 Encounter for antineoplastic chemotherapy (principal); C34.90 Malignant neoplasm of unspecified part of unspecified bronchus or lung; Z79.899 Other long term (current) drug therapy
CPT/HCPCS: 80053; 82024; 82533; 84443; 85025; 96413; J1642; J9022

== ENCOUNTER → 2021-10-18 13:46 | Outpatient (CLI) | payer MEDICARE, SELFPAY ==
[2021-10-18 19:20] LABS: T4 (Thyroxine) 12.7 ug/dl (5.53-11.0)
[2021-10-18 19:34] LABS: Thyroid Stimulating Hormone 0.16 uIU/mL (0.465-4.68)
== END ==
PROVIDERS: PCP Nurse Practitioner Family; Visit Provider Nurse Practitioner Family
DX: R09.89 Other specified symptoms and signs involving the circulatory and respiratory systems (principal)
CPT/HCPCS: 36415; 84436; 84443

== ENCOUNTER 2021-11-02 09:52 | Outpatient (CLI) | payer MEDICARE, SELFPAY ==
[2021-11-02 09:36] VITALS: BMI 21.2
[2021-11-02 09:51] LABS: Basophils % 0.5 % (0.1-2.0); Eosinophils # 0.1 K/mm3 (0.0-0.4); Eosinophils % 2.1 % (0.1-12.0); Hematocrit 44.5 % (37.0-47.0); Hemoglobin 15.5 g/dL (12.2-16.2); Lymphocytes # 1.2 K/mm3 (0.7-4.5); Lymphocytes % 20.8 % (10-50); Mean Corpuscular HGB Conc 34.9 g/dL (31.8-35.4); Mean Corpuscular Hemoglobin 31.9 pg (27.0-31.2); Mean Corpuscular Volume 91.3 fl (81-99); Mean Platelet Volume 7.2 fl (7.4-10.4); Monocytes # 0.3 K/mm3 (0.1-1.0); Monocytes % 5.6 % (1.7-9.3); Neutrophils # 4.1 K/mm3 (1.8-7.8); Neutrophils % 70.9 % (37.0-80.0); Platelet Count 194 K/mm3 (142-424); Red Blood Count 4.88 M/mm3 (4.20-5.40); Red Cell Distribution Width 13.1 % (11.5-17.5); White Blood Count 5.8 K/mm3 (4.8-10.8)
[2021-11-02 10:00] LABS: Chloride 99 mmol/L (98-107); Sodium 128 mmol/L (136-145)
[2021-11-02 10:03] LABS: Alanine Aminotransferase 16 U/L (12-78); Albumin Level 4.3 g/dl (3.5-5.0); Albumin/Globulin Ratio 1.5 (1.1-1.8); Alkaline Phosphatase 72 U/L (38-126); Aspartate Amino Transferase 31 U/L (14-36); Bilirubin,Total 0.6 mg/dl (0.2-1.3); Blood Urea Nitrogen 7 mg/dl (7-17); Creatinine Clearance Estimated 101 mL/min (50-200); Estimated Glomerular Filt Rate 126 ml/min (>60); GFR (African American) 153 ML/MIN (>60); Globulin 2.8 g/dL (1.3-3.2); Total Protein,Serum 7.1 g/dl (6.3-8.2)
[2021-11-02 10:04] LABS: Calcium 8.8 mg/dl (8.4-10.2); Carbon Dioxide 23 mmol/L (22.0-30.0); Glucose 101 mg/dl (74-100)
[2021-11-02 10:34] LABS: Thyroid Stimulating Hormone 0.16 uIU/mL (0.465-4.68)
[2021-11-02 11:30] VITALS: BP 127/68; PULSE 64; RESP 18; O2SAT 99
[2021-11-02 12:00] VITALS: BP 112/61; PULSE 61; RESP 18
[2021-11-02 12:38] VITALS: BP 117/71; PULSE 75; RESP 18
[2021-11-02 12:50] VITALS: BP 119/60; PULSE 64; RESP 18
[2021-11-03 13:19] LABS: Adrenocorticotropic Hormone 50.5 pg/mL (7.2-63.3)
== END 2021-11-02 12:50 | disposition home or self-care (01) ==
LOC: INF 09:52
PROVIDERS: PCP Nurse Practitioner Family; Visit Provider Internal Medicine Medical Oncology
DX: Z51.11 Encounter for antineoplastic chemotherapy (principal); C34.90 Malignant neoplasm of unspecified part of unspecified bronchus or lung; Z79.899 Other long term (current) drug therapy
CPT/HCPCS: 80053; 82024; 82533; 84443; 85025; 96413; J1642; J9022

== ENCOUNTER 2021-11-14 08:50 | Outpatient (CLI) | payer MEDICARE, SELFPAY ==
--- NOTE | 2021-11-14 08:57 | CT_ITS ---
FINAL REPORT CLINICAL HISTORY: LUNG CANCER. 3 month followup COMPARISON: 09/25/2021 FINDINGS: Axial CT images of the chest were obtained with contrast. Coronal reformatted images were also obtained. This study was performed with techniques to keep radiation doses as low as reasonably achievable, (ALARA). Individualized dose reduction techniques using automated exposure control or adjustment of mA and/or KV according to the patient's size were employed. A left subclavian chest port is again noted. Mediastinal adenopathy is again noted. There is a large AP window node measuring 2.5 cm and previously measured 2.4 cm. This appears stable. Other enlarged mediastinal lymph nodes are stable. There are several mildly enlarged hilar lymph nodes which are stable. There is mild scarring. There is 4 mm posterior left upper lobe nodule seen on image 37 which is stable. There is no new mass or nodule. IMPRESSION: Stable mediastinal and hilar adenopathy. Stable posterior left upper lobe nodule. Reviewed, Interpreted and Dictated by Keyur Michel III, MD Transcribed by Rosalva Hernandez Authenticated by Keyur Michel III, MD on 11/14/2021 10:37:58 AM [facility]
--- NOTE | 2021-11-14 08:57 | CT_ITS ---
FINAL REPORT CLINICAL HISTORY: lung cancer, 3 month followup COMPARISON: 09/25/2021 FINDINGS: CT OF THE ABDOMEN AND PELVIS WITH CONTRAST Axial CT images of the abdomen and pelvis were obtained after the administration of iv contrast. Coronal reformatted images were also obtained and reviewed.This study was performed with techniques to keep radiation doses as low as reasonably achievable (ALARA). Individualized dose reduction techniques using automated exposure control or adjustment of mA and/or kV according to the patient's size were employed. Abdomen: The liver has an unremarkable appearance, without evidence of mass or biliary ductal dilatation. The gallbladder is present. The spleen is unremarkable. No adrenal mass is present. The pancreas has an unremarkable appearance. The kidneys are normal, without evidence of mass or hydronephrosis. The aorta is normal in caliber. There is no free fluid. Again noted is upper abdominal adenopathy. The largest upper abdominal periaortic node measures 3.2 cm and previously measured 3.4 cm. A node just superior to this in the gastrohepatic ligament measures 17 mm and previously measured 13 mm. A periaortic node at the left renal hilum measures 15 mm and previously measured 12 mm. Other upper abdominal nodes are slightly larger. Pelvis: The appendix normal. The patient is status post hysterectomy. There is mild nonspecific bladder wall thickening. No inflammatory process is seen. There is no evidence of mass or adenopathy. There is no evidence of bowel obstruction. Postoperative changes are seen from fusion in the lower lumbar spine and right SI joint. IMPRESSION: Overall, slight worsening of upper abdominal adenopathy consistent with worsening neoplastic involvement. Reviewed, Interpreted and Dictated by Keyur Michel III, MD Transcribed by Rosalva Hernandez Authenticated by Keyur Michel III, MD on 11/14/2021 10:37:[address] [facility]
== END 2021-11-14 09:27 | disposition home or self-care (01) ==
LOC: RAD 08:51 → INF 09:40
PROVIDERS: PCP Nurse Practitioner Family; Visit Provider Internal Medicine Medical Oncology
DX: C34.90 Malignant neoplasm of unspecified part of unspecified bronchus or lung (principal)
CPT/HCPCS: 71260; 74177; 96523; J1642; Q9967

== ENCOUNTER 2021-11-20 11:00 | Emergency (ER) | payer MEDICARE, SELFPAY ==
[2021-11-20 12:48] VITALS: BP 106/60; PULSE 68; RESP 16; TEMP 36.6; O2SAT 98; BMI 20.2
--- NOTE | 2021-11-20 12:57 | HMH.EDUTC ---
[facility] [place] Disposition Clinical Impression: UTI (urinary tract infection) Qualifiers: Urinary tract infection type: site unspecified Hematuria presence: with hematuria Qualified Code(s): N39.0 - Urinary tract infection, site not specified Disposition: Home, Self-Care Condition on Discharge: Good Instructions: Urinary Tract Infection, DI for Urinary Tract Infection (UTI) Additional Instructions: Drink plenty of fluids. Take tylenol or ibuprofen for pain or fever. Take the medications as directed. Follow up with your regular doctor. GO TO THE ER FOR ANY WORSENING SYMPTOMS The pyridium will make your urine turn orange, this is an expected side effect. It will stain your clothes if it comes into contact with them. We will culture the urine. That will tell what bacteria is causing your infection and which antibiotics will treat it best. Sometimes the first antibiotic we prescribe turns out to not work against different bacteria. So, make sure you follow up within 3 days if you are not getting better. Prescriptions: Ciprofloxacin HCl [Cipro 500mg Tab] 500 mg PO BID 7 Days #14 tab Transmission Status: Received by [facility] Fluconazole [Diflucan 150mg tab] 150 mg PO ONCE #1 tab Transmission Status: Received by [facility] Phenazopyridine HCl [Pyridium 200mg Tablet] 200 pow PO TID #6 tab Transmission Status: Received by [facility] Referrals: Arianna Wills APRN [Primary Care Provider] - Time of Disposition: 13:21 Medical Decision Making - Medical Records Medical records reviewed: No: I reviewed the patient's medical records. - Ba Inquiry Pt receiving controlled substance: No Vital Signs: 11/20/21 12:48 11/20/21 13:31 Temperature 97.9 F 97.9 F Temperature Source Oral Pulse Rate 68 Pulse Rate [Left] 68 Respiratory Rate 16 16 Blood Pressure 106/60 L Blood Pressure [Right Arm] 106/60 L Blood Pressure Mean [Right Arm] 75 02 Sat by Pulse Oximetry 98 - Lab Data Lab results reviewed: Yes: I reviewed the patient's lab results. Lab Results 11/20/21 13:31: Urine Color Dark yellow, Urine Appearance Turbid, Urine pH 7.0, Ur Specific Emma 1.015, Urine Protein 2+, Urine Glucose (UA) Negative, Urine Ketones Negative, Urine Blood Negative, Urine Nitrate Negative, Urine Bilirubin Negative, Urine Urobilinogen 1, Ur Leukocyte Esterase Negative Orders (Tests/Meds): ED MEDICATIONS Discontinued Medications Generic Name Dose Route Start Last Admin Trade Name Marcelino PRN Reason Stop Dose Admin Ceftriaxone Sodium 1 gm 11/20/21 13:05 11/20/21 13:23 Ceftriaxone 1gm Vial IM 11/20/21 13:06 1 gm ONCE ONE Administration Lidocaine HCl 0 ml 11/20/21 13:05 11/20/21 13:23 Lidocaine 1% 5ml Pf Vial IM 11/20/21 13:06 2 ml ONCE ONE Administration ORDERS Category Date Time Status Urine Culture Stat Micro 11/20/21 12:43 Results [facility] [place] HPI - General Stated complaint: frequent urination,back pain Time Seen by Provider: 11/20/21 12:57 - History of Present Illness Provider Complaint: She states that for the past 3 days she has had low back pain, dysruia, and pressure in her lower abdomen. She has a history of lung cancer. She has been undergoing radiation, but that finished last week. She states that she was feeling better until her urinary symptoms began. - Related Data Home Medications Medication Instructions Recorded Confirmed aspirin 81 mg tablet,delayed 81 mg PO DAILY 09/25/18 11/07/21 release Fluticasone Propionate [Flonase 1 spr NS DAILY 08/24/21 11/07/21 50mcg nasal spray 16gm] Metoprolol Succinate [Metoprolol See Rx Instructions .ROUTE .COMPLEX 08/24/21 11/07/21 Succinate 50mg Tablet*] Omeprazole 40 mg PO DAILY 08/24/21 11/07/21 Sertraline HCl [Zoloft] See Rx Instructions .ROUTE .COMPLEX 08/24/21 11/07/21 Previous Rx's Medication Instructions Recorded atorvastatin 80 mg tab
[2021-11-20 13:31] VITALS: BP 106/60; PULSE 68; RESP 16; TEMP 36.6
[2021-11-20 19:06] LABS: Apearance,Urine Turbid (Clear); Bilirubin,Urine Negative (Negative); Blood, Urine Negative (Negative); Color,Urine Dark Yellow (Yellow); Glucose,Urine (UA) Negative (Negative); Ketones,Urine Negative (Negative); Protein,Urine 2+ (Negative); Specific Gravity, Urine 1.015 (1.005-1.030)
[2021-11-20 19:07] LABS: UTC Leukocyte Esterase,Urine Negative (Negative); UTC Nitrate,Urine Negative (Negative); Urobilinogen,Urine 1 EU/dl (0.2)
== END 2021-11-20 13:32 | disposition home or self-care (01) ==
PROVIDERS: Emergency Provider Nurse Practitioner Family; PCP Nurse Practitioner Family
DX: N39.0 Urinary tract infection, site not specified (principal); B95.61 Methicillin susceptible Staphylococcus aureus infection as the cause of diseases classified elsewhere; M54.50 Low back pain, unspecified; C34.90 Malignant neoplasm of unspecified part of unspecified bronchus or lung; R00.2 Palpitations; I10 Essential (primary) hypertension; I65.29 Occlusion and stenosis of unspecified carotid artery; K21.9 Gastro-esophageal reflux disease without esophagitis; E78.5 Hyperlipidemia, unspecified; E03.9 Hypothyroidism, unspecified; M19.90 Unspecified osteoarthritis, unspecified site; J44.9 Chronic obstructive pulmonary disease, unspecified; Z79.51 Long term (current) use of inhaled steroids; Z79.82 Long term (current) use of aspirin; Z79.899 Other long term (current) drug therapy; Z98.1 Arthrodesis status; Z87.891 Personal history of nicotine dependence
CPT/HCPCS: 81003; 87086; 87088; 87186; 96372; 99284; J0696

== ENCOUNTER 2021-11-23 08:15 | Outpatient (CLI) | payer MEDICARE, SELFPAY ==
[2021-11-23 09:46] VITALS: BMI 21.0
[2021-11-23 10:19] LABS: Basophils # 0.1 K/mm3 (0-0.2); Eosinophils # 0.1 K/mm3 (0.0-0.4); Hematocrit 43.5 % (37.0-47.0); Hemoglobin 14.3 g/dL (12.2-16.2); Lymphocytes # 1.2 K/mm3 (0.7-4.5); Mean Corpuscular HGB Conc 32.9 g/dL (31.8-35.4); Mean Corpuscular Hemoglobin 31.1 pg (27.0-31.2); Mean Corpuscular Volume 94.5 fl (81-99); Mean Platelet Volume 8.2 fl (7.4-10.4); Monocytes # 0.3 K/mm3 (0.1-1.0); Monocytes % 5.4 % (1.7-9.3); Neutrophils # 4.5 K/mm3 (1.8-7.8); Neutrophils % 72.5 % (37.0-80.0); Platelet Count 183 K/mm3 (142-424); White Blood Count 6.2 K/mm3 (4.8-10.8)
[2021-11-23 10:30] LABS: Alanine Aminotransferase 12 U/L (12-78); Albumin/Globulin Ratio 1.5 (1.1-1.8); Alkaline Phosphatase 83 U/L (38-126); Anion Gap 11.3 mEq/L (5-15); Aspartate Amino Transferase 28 U/L (14-36); Bilirubin,Total 0.7 mg/dl (0.2-1.3); Blood Urea Nitrogen 4 mg/dl (7-17); Calcium 8.8 mg/dl (8.4-10.2); Carbon Dioxide 23 mmol/L (22.0-30.0); Chloride 100 mmol/L (98-107); Creatinine Clearance Estimated 125 mL/min (50-200); Estimated Glomerular Filt Rate 163 ml/min (>60); GFR (African American) 198 ML/MIN (>60); Globulin 2.7 g/dL (1.3-3.2); Glucose 80 mg/dl (74-100); Potassium 4.3 mmoL/L (3.5-5.1); Sodium 130 mmol/L (136-145); Total Protein,Serum 6.7 g/dl (6.3-8.2)
[2021-11-23 11:00] LABS: Thyroid Stimulating Hormone 0.19 uIU/mL (0.465-4.68)
[2021-11-24 14:14] LABS: Adrenocorticotropic Hormone 28.1 pg/mL (7.2-63.3)
== END 2021-11-23 10:58 | disposition home or self-care (01) ==
LOC: INF 08:16
PROVIDERS: Visit Provider Internal Medicine Medical Oncology
DX: C34.90 Malignant neoplasm of unspecified part of unspecified bronchus or lung (principal); Z79.899 Other long term (current) drug therapy
CPT/HCPCS: 80053; 82024; 82533; 84443; 85025; J1642

== ENCOUNTER 2021-11-27 08:06 | Outpatient (CLI) | payer MEDICARE, SELFPAY ==
[2021-11-27] VITALS (9 sets, daily range): BP systolic 101–130; BP diastolic 49–86; PULSE 70–88; RESP 18; TEMP 36.3; O2SAT 98–99
== END 2021-11-27 13:35 | disposition home or self-care (01) ==
LOC: INF 08:07
PROVIDERS: Visit Provider Internal Medicine Medical Oncology
DX: Z51.11 Encounter for antineoplastic chemotherapy (principal); C34.90 Malignant neoplasm of unspecified part of unspecified bronchus or lung
CPT/HCPCS: 96413; 96415; 96417; J1642; J8501; J9022; J9045; J9181; Q0166

== ENCOUNTER → 2021-11-28 09:27 | Outpatient (CLI) | payer MEDICARE, SELFPAY ==
[2021-11-28] VITALS (7 sets, daily range): BP systolic 107–136; BP diastolic 54–73; PULSE 64–74; RESP 18; O2SAT 98–99
== END ==
PROVIDERS: PCP Nurse Practitioner Family; Visit Provider Internal Medicine Medical Oncology
DX: Z51.11 Encounter for antineoplastic chemotherapy (principal); C34.90 Malignant neoplasm of unspecified part of unspecified bronchus or lung
CPT/HCPCS: 96413; 96415; J1642; J9181; Q0166

== ENCOUNTER 2021-11-29 09:15 | Outpatient (CLI) | payer MEDICARE, SELFPAY ==
[2021-11-29] VITALS (8 sets, daily range): BP systolic 111–144; BP diastolic 50–88; PULSE 58–70; RESP 16–18; TEMP 36; O2SAT 100
== END 2021-11-29 12:10 | disposition home or self-care (01) ==
LOC: INF 09:16
PROVIDERS: PCP Nurse Practitioner Family; Visit Provider Internal Medicine Medical Oncology
DX: Z51.11 Encounter for antineoplastic chemotherapy (principal); C34.90 Malignant neoplasm of unspecified part of unspecified bronchus or lung
CPT/HCPCS: 96413; 96415; J1642; J9181; Q0166

== ENCOUNTER 2021-12-18 08:49 | Outpatient (CLI) | payer MEDICARE, SELFPAY ==
[2021-12-18] VITALS (10 sets, daily range): BP systolic 100–139; BP diastolic 65–93; PULSE 74–85; RESP 18; TEMP 35.9; O2SAT 99; BMI 20.5
[2021-12-18 09:20] LABS: Basophils # 0.1 K/mm3 (0-0.2); Basophils % 3.5 % (0.1-2.0); Eosinophils % 0.4 % (0.1-12.0); Hematocrit 29.9 % (37.0-47.0); Hemoglobin 10.5 g/dL (12.2-16.2); Mean Corpuscular HGB Conc 35.2 g/dL (31.8-35.4); Mean Corpuscular Hemoglobin 32.3 pg (27.0-31.2); Mean Corpuscular Volume 91.7 fl (81-99); Mean Platelet Volume 8.9 fl (7.4-10.4); Monocytes # 0.2 K/mm3 (0.1-1.0); Monocytes % 9.1 % (1.7-9.3); Neutrophils # 0.9 K/mm3 (1.8-7.8); Platelet Count 195 K/mm3 (142-424); Red Blood Count 3.26 M/mm3 (4.20-5.40); Red Cell Distribution Width 14.3 % (11.5-17.5); White Blood Count 2.2 K/mm3 (4.8-10.8)
[2021-12-18 09:21] LABS: Chloride 102 mmol/L (98-107); Sodium 132 mmol/L (136-145)
[2021-12-18 09:22] LABS: Potassium 3.9 mmoL/L (3.5-5.1)
[2021-12-18 09:24] LABS: Alanine Aminotransferase 14 U/L (12-78); Albumin Level 3.8 g/dl (3.5-5.0); Albumin/Globulin Ratio 1.5 (1.1-1.8); Alkaline Phosphatase 95 U/L (38-126); Anion Gap 8.9 mEq/L (5-15); Aspartate Amino Transferase 27 U/L (14-36); Bilirubin,Total 0.5 mg/dl (0.2-1.3); Blood Urea Nitrogen 9 mg/dl (7-17); Carbon Dioxide 25 mmol/L (22.0-30.0); Creatinine Clearance Estimated 96 mL/min (50-200); Estimated Glomerular Filt Rate 126 ml/min (>60); GFR (African American) 152 ML/MIN (>60); Globulin 2.6 g/dL (1.3-3.2); Total Protein,Serum 6.4 g/dl (6.3-8.2)
[2021-12-18 09:25] LABS: Calcium 8.3 mg/dl (8.4-10.2); Glucose 106 mg/dl (74-100)
[2021-12-18 09:56] LABS: Thyroid Stimulating Hormone 0.08 uIU/mL (0.465-4.68)
[2021-12-18 12:01] LABS: Microscopic, Urine URINE MICROSCOPIC (MICROSCOPIC)
[2021-12-18 12:10] LABS: Appearance,Urine CLEAR (Clear); Bilirubin,Urine Negative (Negative); Blood, Urine Negative (Negative); Color,Urine YELLOW (Yellow); Glucose,Urine (UA) Negative (Negative); Ketones,Urine Negative (Negative); Leukocyte Esterase,Urine TRACE (Negative); Nitrate,Urine Negative (Negative); PH,Urine 6.5 (5.0-8.5); Protein,Urine Negative (Negative); Specific Gravity, Urine <= 1.005 (1.005-1.030); Urobilinogen,Urine 0.2 EU/dl (0.2)
[2021-12-19 13:25] LABS: Adrenocorticotropic Hormone 36.8 pg/mL (7.2-63.3)
== END 2021-12-18 14:20 | disposition home or self-care (01) ==
LOC: INF 08:50
PROVIDERS: PCP Nurse Practitioner Family; Visit Provider Internal Medicine Medical Oncology
DX: Z51.11 Encounter for antineoplastic chemotherapy (principal); C34.90 Malignant neoplasm of unspecified part of unspecified bronchus or lung; N39.0 Urinary tract infection, site not specified; Z79.899 Other long term (current) drug therapy
CPT/HCPCS: 80053; 81001; 82024; 82533; 84443; 85025; 87086; 96413; 96415; 96417; J1642; J8501; J9022; J9045; J9181; Q0166

== ENCOUNTER 2021-12-19 08:24 | Outpatient (CLI) | payer MEDICARE, SELFPAY ==
[2021-12-19 08:35] VITALS: BP 107/72; PULSE 80; RESP 18; TEMP 36.9; O2SAT 100
[2021-12-19 09:12] VITALS: BP 129/79; PULSE 81; RESP 18; O2SAT 99
[2021-12-19 09:42] VITALS: BP 131/72; PULSE 79; RESP 18; O2SAT 99
[2021-12-19 10:12] VITALS: BP 139/69; PULSE 75; RESP 18; O2SAT 100
[2021-12-19 10:42] VITALS: BP 140/62; PULSE 92; RESP 18; O2SAT 99
[2021-12-19 11:05] VITALS: BP 113/82; PULSE 78; RESP 18; O2SAT 99
== END 2021-12-19 11:05 | disposition home or self-care (01) ==
LOC: INF 08:25
PROVIDERS: PCP Nurse Practitioner Family; Visit Provider Internal Medicine Medical Oncology
DX: Z51.11 Encounter for antineoplastic chemotherapy (principal); C34.90 Malignant neoplasm of unspecified part of unspecified bronchus or lung
CPT/HCPCS: 96413; 96415; J1642; J9181; Q0166

== ENCOUNTER 2021-12-20 08:47 | Outpatient (CLI) | payer MEDICARE, SELFPAY ==
[2021-12-20] VITALS (7 sets, daily range): BP systolic 113–152; BP diastolic 54–88; PULSE 64–73; RESP 16; O2SAT 100
== END 2021-12-20 11:20 | disposition home or self-care (01) ==
LOC: INF 08:47
PROVIDERS: PCP Nurse Practitioner Family; Visit Provider Internal Medicine Medical Oncology
DX: Z51.11 Encounter for antineoplastic chemotherapy (principal); C34.90 Malignant neoplasm of unspecified part of unspecified bronchus or lung
CPT/HCPCS: 96413; 96415; J1642; J9181; Q0166

== ENCOUNTER 2021-12-21 12:05 | Outpatient (CLI) | payer MEDICARE, SELFPAY ==
[2021-12-21 12:29] VITALS: BP 148/88; PULSE 73; RESP 18; TEMP 36.4; O2SAT 99
== END 2021-12-21 12:48 | disposition home or self-care (01) ==
LOC: INF 12:05
PROVIDERS: PCP Nurse Practitioner Family; Visit Provider Internal Medicine Medical Oncology
DX: Z51.11 Encounter for antineoplastic chemotherapy (principal); C34.90 Malignant neoplasm of unspecified part of unspecified bronchus or lung
CPT/HCPCS: 96372; J2505

== ENCOUNTER 2022-01-08 08:56 | Outpatient (CLI) | payer MEDICARE, SELFPAY ==
[2022-01-08] VITALS (10 sets, daily range): BP systolic 101–137; BP diastolic 42–70; PULSE 72–82; RESP 18; TEMP 35.9–36.3; O2SAT 100; BMI 19.7
[2022-01-08 09:20] LABS: Basophils % 0.2 % (0.1-2.0); Eosinophils % 0.2 % (0.1-12.0); Hemoglobin 7.2 g/dL (12.2-16.2); Lymphocytes % 10.9 % (10-50); Mean Corpuscular HGB Conc 34.7 g/dL (31.8-35.4); Mean Corpuscular Hemoglobin 31.2 pg (27.0-31.2); Mean Corpuscular Volume 89.9 fl (81-99); Mean Platelet Volume 7.4 fl (7.4-10.4); Monocytes # 0.6 K/mm3 (0.1-1.0); Monocytes % 6.3 % (1.7-9.3); Neutrophils # 7.4 K/mm3 (1.8-7.8); Neutrophils % 82.3 % (37.0-80.0); Platelet Count 409 K/mm3 (142-424); Red Cell Distribution Width 18.8 % (11.5-17.5)
[2022-01-08 09:25] LABS: Chloride 104 mmol/L (98-107); Hematocrit 20.7 % (37.0-47.0)
--- NOTE | 2022-01-08 09:25 | PC.NURSE ---
924-Prisca gerber called rn at 924 to report critical hematocrit level 20.7 to Katherine maria rn. Rn repeated and verified pt name,, and lab value.result called to . new orders received to give one unit prbc today and hold chemo treatment today,and give chemo tomorrow.
[2022-01-08 09:26] LABS: Sodium 133 mmol/L (136-145)
[2022-01-08 09:28] LABS: Alanine Aminotransferase 10 U/L (12-78); Albumin Level 3.6 g/dl (3.5-5.0); Albumin/Globulin Ratio 1.3 (1.1-1.8); Alkaline Phosphatase 107 U/L (38-126); Aspartate Amino Transferase 36 U/L (14-36); Bilirubin,Total 0.3 mg/dl (0.2-1.3); Blood Urea Nitrogen 13 mg/dl (7-17); Carbon Dioxide 24 mmol/L (22.0-30.0); Creatinine Clearance Estimated 116 mL/min (50-200); Estimated Glomerular Filt Rate 163 ml/min (>60); GFR (African American) 197 ML/MIN (>60); Globulin 2.8 g/dL (1.3-3.2); Total Protein,Serum 6.4 g/dl (6.3-8.2)
[2022-01-08 09:29] LABS: Calcium 9.2 mg/dl (8.4-10.2); Glucose 116 mg/dl (74-100)
[2022-01-08 09:59] LABS: Thyroid Stimulating Hormone 0.55 uIU/mL (0.465-4.68)
[2022-01-08 14:58] LABS: Hematocrit 24.5 % (37.0-47.0)
[2022-01-08 15:07] LABS: Hemoglobin 8.5 g/dL (12.2-16.2)
[2022-01-09 13:11] LABS: Adrenocorticotropic Hormone 33.9 pg/mL (7.2-63.3)
== END 2022-01-08 14:35 | disposition home or self-care (01) ==
LOC: INF 08:57
PROVIDERS: PCP Nurse Practitioner Family; Visit Provider Internal Medicine Medical Oncology
DX: C34.90 Malignant neoplasm of unspecified part of unspecified bronchus or lung (principal); D64.81 Anemia due to antineoplastic chemotherapy; Z79.899 Other long term (current) drug therapy
CPT/HCPCS: 36430; 80053; 82024; 82533; 84443; 85014; 85018; 85025; 86850; J1642; P9016

== ENCOUNTER 2022-01-09 08:54 | Outpatient (CLI) | payer MEDICARE, SELFPAY ==
[2022-01-09] VITALS (10 sets, daily range): BP systolic 112–129; BP diastolic 47–80; PULSE 69–81; RESP 18; TEMP 36.4; O2SAT 99–100
== END 2022-01-09 13:43 | disposition home or self-care (01) ==
PROVIDERS: PCP Nurse Practitioner Family; Visit Provider Internal Medicine Medical Oncology
DX: Z51.11 Encounter for antineoplastic chemotherapy (principal); C34.90 Malignant neoplasm of unspecified part of unspecified bronchus or lung
CPT/HCPCS: 96413; 96415; 96417; J1642; J8501; J9022; J9045; J9181; Q0166

== ENCOUNTER 2022-01-10 09:04 | Outpatient (CLI) | payer MEDICARE, SELFPAY ==
[2022-01-10 09:25] VITALS: BP 98/60; PULSE 71; RESP 18; TEMP 36.6; O2SAT 100
[2022-01-10 09:54] VITALS: BP 114/65; PULSE 76; RESP 18; O2SAT 99
[2022-01-10 10:24] VITALS: BP 112/69; PULSE 78; RESP 18; O2SAT 99
[2022-01-10 10:54] VITALS: BP 122/66; PULSE 76; RESP 18; O2SAT 100
[2022-01-10 11:24] VITALS: BP 129/67; PULSE 75; RESP 18; O2SAT 99
[2022-01-10 11:35] VITALS: BP 126/64; PULSE 78; RESP 18; O2SAT 99
== END 2022-01-10 11:40 | disposition home or self-care (01) ==
LOC: INF 09:07
PROVIDERS: PCP Nurse Practitioner Family; Visit Provider Internal Medicine Medical Oncology
DX: Z51.11 Encounter for antineoplastic chemotherapy (principal); C34.90 Malignant neoplasm of unspecified part of unspecified bronchus or lung
CPT/HCPCS: 96413; 96415; J1642; J9181; Q0166

== ENCOUNTER 2022-01-11 10:52 | Outpatient (CLI) | payer MEDICARE, SELFPAY ==
[2022-01-11] VITALS (8 sets, daily range): BP systolic 109–124; BP diastolic 68–85; PULSE 64–69; RESP 16–18; O2SAT 94
== END 2022-01-11 13:40 | disposition home or self-care (01) ==
LOC: INF 10:53
PROVIDERS: PCP Nurse Practitioner Family; Visit Provider Internal Medicine Medical Oncology
DX: Z51.11 Encounter for antineoplastic chemotherapy (principal); C34.92 Malignant neoplasm of unspecified part of left bronchus or lung; Z87.891 Personal history of nicotine dependence
CPT/HCPCS: 96413; 96415; J1642; J9181; Q0166

== ENCOUNTER → 2022-01-23 09:23 | Outpatient (CLI) | payer MEDICARE, SELFPAY ==
--- NOTE | 2022-01-23 09:30 | CT_ITS ---
FINAL REPORT CLINICAL HISTORY: LUNG CANCER COMPARISON: November 14, 2021 FINDINGS: CT CHEST W/CONTRAST Axial CT images of the chest were obtained with contrast. Coronal reformatted images were also obtained. This study was performed with techniques to keep radiation doses as low as reasonably achievable, (ALARA). Individualized dose reduction techniques using automated exposure control or adjustment of mA and/or KV according to the patient's size were employed. There is persistent mediastinal adenopathy. There is a 15 mm AP window lymph node that previously measured 18 mm. There is a precarinal lymph node measuring 13 mm which previously measured 15 mm. There are borderline size hilar lymph nodes again noted. No axillary mass or adenopathy is identified. On lung window images, there are mild child changes of emphysema. There is mild pulmonary scarring. There is moderate peripheral scarring which is greatest in the lung bases. There is a 4 mm posterior lateral left upper lobe nodule which is stable and seen on image 34. No new mass or nodule is identified. No localized pulmonary inflammatory process is identified. IMPRESSION: Slightly improved mediastinal adenopathy. Stable small left upper lobe nodule. No new abnormality Reviewed, Interpreted and Dictated by Keyur Michel III, MD Transcribed by Cecilia Lombardi Authenticated by Keyur Michel III, MD on 01/23/2022 12:19:[address] [facility]
--- NOTE | 2022-01-23 09:30 | CT_ITS ---
FINAL REPORT CLINICAL HISTORY: LUNG CANCER COMPARISON: November 14, 2021 FINDINGS: CT OF THE ABDOMEN AND PELVIS WITH CONTRAST Axial CT images of the abdomen and pelvis were obtained after the administration of oral and iv contrast. Coronal reformatted images were also obtained and reviewed.This study was performed with techniques to keep radiation doses as low as reasonably achievable (ALARA). Individualized dose reduction techniques using automated exposure control or adjustment of mA and/or kV according to the patient's size were employed. Abdomen: The heart is normal in size. The liver has an unremarkable appearance, without evidence of mass or biliary ductal dilatation. The spleen is unremarkable. No adrenal mass is present. The pancreas has an unremarkable appearance. The kidneys are normal, without evidence of mass or hydronephrosis. The aorta is normal in caliber. There is improved abdominal adenopathy. The largest lymph node is in the medial left upper quadrant posterior to the pancreatic body which measures 19 mm and was previously 30 mm. Other smaller lymph nodes are stable. No mass or abnormal fluid collection is seen. There are moderate vascular calcifications. There is high-grade stenosis in the right common iliac artery. Pelvis: The urinary bladder is unremarkable. No inflammatory process is seen. There is no evidence of mass. There is no evidence of bowel obstruction. There are postoperative changes in the lower lumbar spine and the right SI joint. IMPRESSION: Improved upper abdominal adenopathy. No new abnormality identified. Reviewed, Interpreted and Dictated by Keyur Michel III, MD Transcribed by Cecilia Lombardi Authenticated by Keyur Michel III, MD on 01/23/2022 12:19:00 PM [facility]
== END ==
PROVIDERS: PCP Nurse Practitioner Family; Visit Provider Internal Medicine Medical Oncology
DX: C34.90 Malignant neoplasm of unspecified part of unspecified bronchus or lung (principal); Z03.89 Encounter for observation for other suspected diseases and conditions ruled out
CPT/HCPCS: 71260; 74177; J1642; Q9967

== ENCOUNTER 2022-01-29 11:15 | Outpatient (CLI) | payer MEDICARE, SELFPAY ==
[2022-01-29 11:25] VITALS: BMI 18.1
[2022-01-29 12:03] LABS: Alanine Aminotransferase 13 U/L (12-78); Albumin Level 3.8 g/dl (3.5-5.0); Albumin/Globulin Ratio 1.7 (1.1-1.8); Alkaline Phosphatase 85 U/L (38-126); Anion Gap 8.9 mEq/L (5-15); Aspartate Amino Transferase 22 U/L (14-36); Basophils % 0.8 % (0.1-2.0); Bilirubin,Total < 0.1 mg/dl (0.2-1.3); Blood Urea Nitrogen 10 mg/dl (7-17); Calcium 8.9 mg/dl (8.4-10.2); Carbon Dioxide 26 mmol/L (22.0-30.0); Chloride 100 mmol/L (98-107); Creatinine Clearance Estimated 93 mL/min (50-200); Eosinophils % 2.4 % (0.1-12.0); Estimated Glomerular Filt Rate 126 ml/min (>60); GFR (African American) 152 ML/MIN (>60); Globulin 2.3 g/dL (1.3-3.2); Glucose 109 mg/dl (74-100); Lymphocytes # 0.7 K/mm3 (0.7-4.5); Lymphocytes % 50.6 % (10-50); Mean Corpuscular HGB Conc 35.9 g/dL (31.8-35.4); Mean Corpuscular Volume 97.6 fl (81-99); Mean Platelet Volume 9.1 fl (7.4-10.4); Monocytes # 0.1 K/mm3 (0.1-1.0); Monocytes % 9.9 % (1.7-9.3); Neutrophils # 0.5 K/mm3 (1.8-7.8); Neutrophils % 36.3 % (37.0-80.0); Platelet Count 105 K/mm3 (142-424); Potassium 3.9 mmoL/L (3.5-5.1); Red Blood Count 1.91 M/mm3 (4.20-5.40); Red Cell Distribution Width 20.7 % (11.5-17.5); Sodium 131 mmol/L (136-145); Total Protein,Serum 6.1 g/dl (6.3-8.2); White Blood Count 1.3 K/mm3 (4.8-10.8)
[2022-01-29 12:05] LABS: Hemoglobin 6.7 g/dL (12.2-16.2)
[2022-01-29 12:06] LABS: Hematocrit 18.7 % (37.0-47.0)
[2022-01-29 12:09] LABS: MANUAL DIFFERENTIAL MANUAL DIFFERENTIAL (MANUAL DIFF)
[2022-01-29 12:36] VITALS: BP 79/59; PULSE 76; RESP 18; TEMP 36.4; O2SAT 98
[2022-01-29 12:41] LABS: Eosinophils % 4 % (0-3); Lymphocytes % 48 % (10-50); Monocytes % 12 % (2-9); Neutrophils % 36 % (42-76); Total Cells Counted 25
[2022-01-29 12:42] LABS: Anisocytosis 1+; Macrocytosis 1+; Platelet Estimate Slight Decrease
[2022-01-29 13:05] VITALS: BP 91/56; PULSE 75; RESP 16; O2SAT 97
[2022-01-29 13:40] VITALS: BP 100/60; PULSE 72; RESP 16; TEMP 36.6; O2SAT 98
--- NOTE | 2022-01-29 16:01 | PC.NURSE ---
1206 Jenny Gurrola called MARIAH Mccray at 1206 to report Hgb 6.7, Hct 18.7, WBC 1.3. RN repeated and verified patient name, date of , and lab values. Results called to Dr. Robin. Also report to Dr. Robin patient's low BP 79/59. Order given to administer NS 1 liter IV bolus today, type and cross 1 unit PRBC and transfuse 1 unit PRBC on 01/30/22.
== END 2022-01-29 13:42 | disposition home or self-care (01) ==
LOC: INF 11:16
PROVIDERS: PCP Nurse Practitioner Family; Visit Provider Internal Medicine Medical Oncology
DX: C34.92 Malignant neoplasm of unspecified part of left bronchus or lung (principal)
CPT/HCPCS: 80053; 85007; 85025; 86850; 96360; J1642

== ENCOUNTER 2022-01-30 09:36 | Outpatient (CLI) | payer MEDICARE, SELFPAY ==
[2022-01-30] VITALS (12 sets, daily range): BP systolic 80–108; BP diastolic 52–74; PULSE 68–74; RESP 18–20; TEMP 35.6–36.6; O2SAT 95–100; BMI 17.9
[2022-01-30 13:20] LABS: Hematocrit 21.9 % (37.0-47.0); Hemoglobin 7.8 g/dL (12.2-16.2)
== END 2022-01-30 13:15 | disposition home or self-care (01) ==
LOC: INF 09:37
PROVIDERS: PCP Nurse Practitioner Family; Visit Provider Internal Medicine Medical Oncology
DX: C34.92 Malignant neoplasm of unspecified part of left bronchus or lung (principal); D64.9 Anemia, unspecified
CPT/HCPCS: 36430; 85014; 85018; J1642; P9016

== ENCOUNTER → 2022-01-31 12:06 | Outpatient (CLI) | payer MEDICARE, SELFPAY | PROVIDERS: Visit Provider Student in an Organized Health Care Education/Training Program | DX: B37.0 Candidal stomatitis (principal) ==

== ENCOUNTER 2022-02-08 14:24 | Outpatient (CLI) | payer MEDICARE, SELFPAY ==
[2022-02-08 14:30] VITALS: BMI 18.1
[2022-02-08 14:58] LABS: Basophils # 0.1 K/mm3 (0-0.2); Basophils % 2.1 % (0.1-2.0); Eosinophils % 0.5 % (0.1-12.0); Hematocrit 26.5 % (37.0-47.0); Hemoglobin 9.2 g/dL (12.2-16.2); Lymphocytes # 1.3 K/mm3 (0.7-4.5); Lymphocytes % 24.6 % (10-50); Mean Corpuscular HGB Conc 34.8 g/dL (31.8-35.4); Mean Corpuscular Hemoglobin 35.1 pg (27.0-31.2); Mean Corpuscular Volume 100.8 fl (81-99); Mean Platelet Volume 8.5 fl (7.4-10.4); Monocytes # 0.3 K/mm3 (0.1-1.0); Monocytes % 5.8 % (1.7-9.3); Neutrophils # 3.6 K/mm3 (1.8-7.8); Platelet Count 208 K/mm3 (142-424); Red Blood Count 2.63 M/mm3 (4.20-5.40); Red Cell Distribution Width 20.4 % (11.5-17.5); White Blood Count 5.3 K/mm3 (4.8-10.8)
[2022-02-08 14:59] LABS: Chloride 99 mmol/L (98-107); Sodium 130 mmol/L (136-145)
[2022-02-08 15:00] LABS: Potassium 4.2 mmoL/L (3.5-5.1)
[2022-02-08 15:02] LABS: Alanine Aminotransferase 13 U/L (12-78); Albumin Level 4.3 g/dl (3.5-5.0); Albumin/Globulin Ratio 1.7 (1.1-1.8); Alkaline Phosphatase 91 U/L (38-126); Anion Gap 11.2 mEq/L (5-15); Aspartate Amino Transferase 29 U/L (14-36); Bilirubin,Total 0.7 mg/dl (0.2-1.3); Blood Urea Nitrogen 11 mg/dl (7-17); Carbon Dioxide 24 mmol/L (22.0-30.0); Creatinine Clearance Estimated 117 mL/min (50-200); Estimated Glomerular Filt Rate 163 ml/min (>60); GFR (African American) 197 ML/MIN (>60); Globulin 2.5 g/dL (1.3-3.2); Total Protein,Serum 6.8 g/dl (6.3-8.2)
[2022-02-08 15:03] LABS: Calcium 9.2 mg/dl (8.4-10.2); Glucose 113 mg/dl (74-100)
== END 2022-02-08 15:05 | disposition home or self-care (01) ==
LOC: LAB 14:25 → INF 14:27
PROVIDERS: PCP Nurse Practitioner Family; Visit Provider Internal Medicine Medical Oncology
DX: C34.92 Malignant neoplasm of unspecified part of left bronchus or lung (principal); Z45.2 Encounter for adjustment and management of vascular access device
CPT/HCPCS: 36591; 80053; 85025; J1642

== ENCOUNTER → 2022-04-12 08:00 | Outpatient (CLI) | payer MEDICARE, SELFPAY ==
--- NOTE | 2022-04-12 08:18 | CT_ITS ---
FINAL REPORT CLINICAL HISTORY: LUNG CANCER COMPARISON: January 23, 2022 FINDINGS: Before and after the administration of intravenous contrast, axial images through the chest were performed by computed tomography. This study was performed with techniques to keep radiation doses as low as reasonably achievable, (ALARA). Individualized dose reduction techniques using automated exposure control or adjustment of mA and/or kV according to the patient's size were employed. There is no axillary adenopathy. There is mediastinal lymphadenopathy. An AP window conglomerate measures 3.1 cm and producing measured 3.0 cm, unchanged. Borderline hilar lymph nodes are stable. The heart size is normal. There is no pericardial or pleural effusion. Interlobular septal thickening in both lung bases is similar to the prior exam. A posterior left upper lobe pleural nodule measures 6 mm on image 14, unchanged. There is no change in a compression fracture of T5. IMPRESSION: Stable chest findings with stable lymphadenopathy and left upper lobe nodule. Reviewed, Interpreted and Dictated by Sheron Diggs MD Transcribed by Graham Christianson Authenticated and [facility]
--- NOTE | 2022-04-12 08:18 | CT_ITS ---
FINAL REPORT TECHNIQUE: Pre-and postcontrast axial imaging of the abdomen and pelvis was obtained.This study was performed with techniques to keep radiation doses as low as reasonably achievable, (ALARA). Individualized dose reduction technique using automated exposure control or adjustment of mA and/or kV according to the patient's size were employed. CLINICAL HISTORY: LUNG CANCER COMPARISON: 01/23/2022 FINDINGS: The liver is homogeneous. The gallbladder is present. The spleen, adrenal glands, and pancreas are unremarkable. There is no hydronephrosis or solid renal mass. On precontrast imaging, no renal stones are identified. There is no obstruction. A large amount of retained stool is seen. There is a retroperitoneal lymph node, to the left of the SMA, on image number 23 measuring 1.5 cm, previously measured 1.9 cm. There is a retroperitoneal lymph node on image number 40 measuring 12 mm. Atherosclerotic disease is seen of the abdominal aorta and its branches. Patient is status post hysterectomy. Otherwise, the pelvic organs and pelvic portions of the GI tract, including the appendix, are within normal limits. There is no lymphadenopathy or ascites. No acute osseous abnormalities identified. IMPRESSION: Improved upper abdominal lymph node but worsening, more inferior right retroperitoneal lymph node. Constipation. Reviewed, Interpreted and Dictated by Sheron Diggs MD Transcribed by Katherin Chavarria Authenticated and [facility]
[2022-04-12 08:19] LABS: Eosinophils # 0.1 K/mm3 (0.0-0.4); Eosinophils % 1.3 % (0.1-12.0); Hematocrit 37.2 % (37.0-47.0); Hemoglobin 12.4 g/dL (12.2-16.2); Lymphocytes % 23.2 % (10-50); Mean Corpuscular HGB Conc 33.4 g/dL (31.8-35.4); Mean Corpuscular Hemoglobin 34.5 pg (27.0-31.2); Mean Corpuscular Volume 103.2 fl (81-99); Monocytes # 0.3 K/mm3 (0.1-1.0); Monocytes % 6.6 % (1.7-9.3); Neutrophils # 3.1 K/mm3 (1.8-7.8); Platelet Count 181 K/mm3 (142-424); Red Cell Distribution Width 12.9 % (11.5-17.5); White Blood Count 4.5 K/mm3 (4.8-10.8)
[2022-04-12 08:26] LABS: Alanine Aminotransferase 14 U/L (12-78); Albumin Level 4.4 g/dl (3.5-5.0); Albumin/Globulin Ratio 1.5 (1.1-1.8); Alkaline Phosphatase 81 U/L (38-126); Anion Gap 8.5 mEq/L (5-15); Aspartate Amino Transferase 27 U/L (14-36); Bilirubin,Total 0.2 mg/dl (0.2-1.3); Blood Urea Nitrogen 14 mg/dl (7-17); Calcium 9.6 mg/dl (8.4-10.2); Carbon Dioxide 29 mmol/L (22.0-30.0); Chloride 97 mmol/L (98-107); Estimated Glomerular Filt Rate 126 ml/min (>60); GFR (African American) 152 ML/MIN (>60); Globulin 2.9 g/dL (1.3-3.2); Glucose 99 mg/dl (74-100); Potassium 4.5 mmoL/L (3.5-5.1); Sodium 130 mmol/L (136-145); Total Protein,Serum 7.3 g/dl (6.3-8.2)
== END ==
PROVIDERS: PCP Nurse Practitioner Family; Visit Provider Internal Medicine Medical Oncology
DX: C34.90 Malignant neoplasm of unspecified part of unspecified bronchus or lung (principal); Z03.89 Encounter for observation for other suspected diseases and conditions ruled out
CPT/HCPCS: 36415; 71270; 74178; 80053; 85025; J1642; Q9967

== ENCOUNTER 2022-04-26 08:15 | Outpatient (CLI) | payer MEDICARE, SELFPAY ==
[2022-04-26 08:20] VITALS: BMI 18.1
[2022-04-26 08:43] LABS: Basophils % 1.2 % (0.1-2.0); Eosinophils # 0.1 K/mm3 (0.0-0.4); Eosinophils % 1.8 % (0.1-12.0); Hematocrit 34.3 % (37.0-47.0); Hemoglobin 11.6 g/dL (12.2-16.2); Lymphocytes # 1.2 K/mm3 (0.7-4.5); Lymphocytes % 31.4 % (10-50); Mean Corpuscular HGB Conc 33.7 g/dL (31.8-35.4); Mean Platelet Volume 8.4 fl (7.4-10.4); Monocytes # 0.3 K/mm3 (0.1-1.0); Monocytes % 7.3 % (1.7-9.3); Neutrophils # 2.2 K/mm3 (1.8-7.8); Neutrophils % 58.2 % (37.0-80.0); Platelet Count 176 K/mm3 (142-424); Red Blood Count 3.39 M/mm3 (4.20-5.40); Red Cell Distribution Width 12.8 % (11.5-17.5); White Blood Count 3.7 K/mm3 (4.8-10.8)
--- NOTE | 2022-04-26 08:48 | MR_ITS ---
FINAL REPORT CLINICAL HISTORY: LUNG CANCER headaches short term memory loss x 1 .5 weeks intermitten dizziness and bluryness exam was supposed to be with contrast but done without, pt refused contrast and limitied stuides due to patients refusal COMPARISON: 03/04/2021 FINDINGS: Multiplanar MR imaging of the brain was performed without contrast, which patient declined. There is motion artifact on many sequences. There are multiple foci of abnormal signal involving the cerebral and cerebellar hemispheres, with partial restricted diffusion, consistent with widespread, new intracranial metastatic disease. There are foci of presumed hemorrhage in the right occipital lobe and left choroid plexus. The ventricular size is normal. There is no evidence of shift of the midline structures. The posterior fossa and brainstem have an unremarkable appearance. Normal major vessel vascular flow voids are seen. IMPRESSION: Widespread metastatic disease with foci of presumed hemorrhage, new from prior exam. Reviewed, Interpreted and Dictated by Keyur Michel III, MD Transcribed by Katherin Chavarria Authenticated and [facility]
[2022-04-26 08:57] LABS: Chloride 100 mmol/L (98-107); Potassium 4.1 mmoL/L (3.5-5.1); Sodium 131 mmol/L (136-145)
[2022-04-26 09:00] LABS: Alanine Aminotransferase 17 U/L (12-78); Albumin Level 4.2 g/dl (3.5-5.0); Albumin/Globulin Ratio 1.4 (1.1-1.8); Alkaline Phosphatase 110 U/L (38-126); Anion Gap 8.1 mEq/L (5-15); Aspartate Amino Transferase 33 U/L (14-36); Bilirubin,Total 0.3 mg/dl (0.2-1.3); Blood Urea Nitrogen 12 mg/dl (7-17); Carbon Dioxide 27 mmol/L (22.0-30.0); Creatinine Clearance Estimated 93 mL/min (50-200); Estimated Glomerular Filt Rate 126 ml/min (>60); GFR (African American) 152 ML/MIN (>60); Globulin 2.9 g/dL (1.3-3.2); Total Protein,Serum 7.1 g/dl (6.3-8.2)
[2022-04-26 09:01] LABS: Calcium 9.3 mg/dl (8.4-10.2); Glucose 93 mg/dl (74-100)
== END 2022-04-26 09:50 | disposition home or self-care (01) ==
LOC: INF 08:16
PROVIDERS: PCP Nurse Practitioner Family; Visit Provider Internal Medicine Medical Oncology
DX: C34.90 Malignant neoplasm of unspecified part of unspecified bronchus or lung (principal); Z03.89 Encounter for observation for other suspected diseases and conditions ruled out; Z45.2 Encounter for adjustment and management of vascular access device
CPT/HCPCS: 70551; 80053; 85025; J1642